=== PATIENT | female | born 1990 | race Caucasian/White ===

== ENCOUNTER 2017-11-27 07:53 | Day surgery (SDC) | payer OTHER ==
[2017-11-27] MEDS ORDERED: SOD CHLORIDE 0.9% 1,000 ML IV (08:00)
[2017-11-27] MEDS ORDERED: CEFAZOLIN 2 GM/50 ML (PMX) 50 ML IVPB (08:00)
[2017-11-27] MEDS ORDERED: GLYCOPYRROLATE 0.4 MG INJ (09:45)
[2017-11-27] MEDS ORDERED: PROPOFOL 20 ML (09:45)
[2017-11-27] MEDS ORDERED: ROCURONIUM 50 MG INJ (09:45)
[2017-11-27] MEDS ORDERED: NEOSTIGMINE 3 MG/3 ML SYRINGE (09:45)
[2017-11-27] MEDS ORDERED: MIDAZOLAM 1 MG/ML 2 ML INJ (09:45)
[2017-11-27] MEDS ORDERED: CEFAZOLIN 1 GM INJ (09:45)
[2017-11-27] MEDS ORDERED: FENTAnyl 50 MCG/ML VIAL (09:46)
[2017-11-27] MEDS ORDERED: ONDANSETRON 4 MG INJ (09:46)
[2017-11-27] MEDS ORDERED: DEXAMETHASONE 4 MG/ML 1 ML INJ (09:46)
[2017-11-27] MEDS: BUPIVACAINE 0.25% (MPF) 30 ML INJ (10:10)
[2017-11-27] MEDS: POLYMYXIN/BACITRACIN 1L IRRIG (10:11)
[2017-11-27] MEDS ORDERED: FENTAnyl 50 MCG/ML VIAL IV ×2 (10:30)
[2017-11-27] MEDS ORDERED: LABETALOL HCL 20MG INJ IV (10:30)
[2017-11-27] MEDS ORDERED: hydrALAzine 20 MG INJ IV (10:30)
[2017-11-27] MEDS ORDERED: TRIMETHOBENZAMIDE 100 MG/ML VIAL IM (10:30)
[2017-11-27] MEDS ORDERED: ALBUTEROL 0.083% (NEB) 2.5 MG/3 ML AMP HHN (10:30)
[2017-11-27] MEDS ORDERED: OXYCODONE/ACETAMINOPHEN (5/325) TAB PO ×2 (10:30)
[2017-11-27] MEDS ORDERED: DIPHENHYDRAMINE 50 MG INJ IV (10:30)
[2017-11-27] MEDS ORDERED: HYDROmorphONE (0.2 MG/ML) 10ML SYG IV ×3 (10:30)
[2017-11-27] MEDS ORDERED: MIDAZOLAM 1 MG/ML 2 ML INJ IV (10:30)
[2017-11-27] MEDS ORDERED: MEPERIDINE 25 MG INJ IV (10:30)
[2017-11-27] MEDS ORDERED: IPRATROPIUM (NEB) 0.5 MG/2.5 ML AMP HHN (10:30)
[2017-11-27] MEDS ORDERED: EPHEDrine SULFATE 50 MG/5 ML SYG IV (10:30)
[2017-11-27] MEDS ORDERED: SUGAMMADEX SODIUM 200 MG/2 ML VIAL IV (10:38)
[2017-11-27] MEDS: HYDROCODONE/APAP (5/325) TAB PO (11:00)
[2017-11-27] MEDS: ONDANSETRON 4 MG INJ IV (11:04)
[2017-11-27] MEDS: FENTAnyl 50 MCG/ML VIAL IV ×3 (11:04→11:56)
== END 2017-11-27 12:54 | disposition home or self-care (01) ==
LOC: SDS 07:53
DX: K43.6 Other and unspecified ventral hernia with obstruction, without gangrene (principal); E03.9 Hypothyroidism, unspecified; F20.9 Schizophrenia, unspecified
CPT/HCPCS: 49653; 84703; 88307

== ENCOUNTER 2019-03-02 09:31 | Inpatient (IN) | payer OTHER ==
[2019-03-02 10:01] LABS: ADD MAN DIFF? NO
[2019-03-02] MEDS: ALBUTEROL 0.083% (NEB) 2.5 MG/3 ML AMP INH (10:04)
[2019-03-02 10:05] LABS: BASOPHIL # 0.1 10^3/ul (0.0-0.1); BASOPHILS % 0.7 % (0.0-2.0); EOSINOPHILS % 0.2 % (0.0-7.0); HEMATOCRIT 47.7 % (37.0-47.0); HEMOGLOBIN 14.8 g/dl (12.0-16.0); LYMPHOCYTES # 1.1 10^3/ul (0.8-2.9); LYMPHOCYTES % 6.6 % (15.0-51.0); MEAN CORPUSCULAR HEMOGLOBIN 26.6 pg (29.0-33.0); MEAN CORPUSCULAR VOLUME 85.8 fl (82.0-101.0); MEAN PLATELET VOLUME 8.8 fl (7.4-10.4); MONOCYTE # 0.8 10^3/ul (0.3-0.9); MONOCYTES % 4.6 % (0.0-11.0); NEUTROPHIL # 14.7 10^3/ul (1.6-7.5); PLATELET COUNT 377 10^3/UL (140-415); RED BLOOD COUNT 5.56 10^6/ul (4.20-5.40); RED CELL DISTRIBUTION WIDTH 18.9 % (11.5-14.5)
[2019-03-02 10:05] LABS: WHITE BLOOD COUNT 16.9 10^3/ul (4.8-10.8)
[2019-03-02 10:16] LABS: ALANINE AMINOTRANSFERASE 32 IU/L (13-69); ALBUMIN/GLOBULIN RATIO 1.08; ALKALINE PHOSPHATASE 75 IU/L (42-121); ANION GAP 10 (5-13); ASPARTATE AMINO TRANSFERASE 36 IU/L (15-46); BILIRUBIN,INDIRECT 0.7 mg/dl (0-1.1); BILIRUBIN,TOTAL 0.7 mg/dl (0.2-1.3); BLOOD UREA NITROGEN 10 mg/dl (7-20); CALCIUM 9.4 mg/dl (8.4-10.2); CARBON DIOXIDE 30 mmol/L (21-31); CHLORIDE 96 mmol/L (97-110); CREATININE 0.76 mg/dl (0.44-1.00); Estimated GFR > 60 mL/min (>60); GLUCOSE 117 mg/dl (70-220); INR 1.02; POTASSIUM 4.1 mmol/L (3.5-5.1); PROTIME 13.5 Sec (11.9-14.9); PT RATIO 1.1; SODIUM 136 mmol/L (135-144); TOTAL PROTEIN 7.7 g/dl (6.1-8.1)
[2019-03-02 10:17] LABS: PARTIAL THROMBOPLASTIN TIME 27.3 Sec (23.0-35.0)
[2019-03-02 10:24] LABS: B-TYPE NATRIURETIC PEPTIDE 66 PG/ML (0-125)
[2019-03-02 10:29] LABS: TROPONIN-I < 0.012 ng/ml (0.000-0.120)
[2019-03-02] MEDS: CEFTRIAXONE 1 GM/50 ML (PMX) 50 ML IVPB (12:02)
[2019-03-02] MEDS ORDERED: ACETAMINOPHEN 325 MG TAB PO (12:30)
[2019-03-02] MEDS ORDERED: ONDANSETRON 4 MG INJ IV ×2 (12:30→15:30)
[2019-03-02] MEDS: FUROSEMIDE 40 MG INJ IV (12:36)
[2019-03-02 13:12] LABS: ADD UMIC YES; UR ASCORBIC ACID NEGATIVE (NEGATIVE); UR BILIRUBIN (Dip) NEGATIVE (NEGATIVE); UR BLOOD (Dip) 1+ mg/dL (NEGATIVE); UR CLARITY CLEAR (CLEAR); UR COLOR STRAW (YELLOW); UR GLUCOSE (Dip) NEGATIVE (NEGATIVE); UR KETONES (Dip) NEGATIVE (NEGATIVE); UR LEUKOCYTE ESTERASE (Dip) NEGATIVE Leu/ul (NEGATIVE); UR NITRITE (Dip) NEGATIVE (NEGATIVE); UR RBC 0 /HPF (0-5); UR SPECIFIC GRAVITY (Dip) 1.003 (1.003-1.030); UR TOTAL PROTEIN (Dip) NEGATIVE (NEGATIVE); UR UROBILINOGEN (Dip) NEGATIVE (NEGATIVE); UR WBC 1 /HPF (0-5)
[2019-03-02 15:11] LABS: AADO2 Arterial 420.6 mmHg (7.0-24.0); Allen Test ACCEPTAB; Arterial Base Excess 4.5 mmol/L (-3.0-3); Arterial Blood Gas Oxygen Sat 96.8 mmHG (95.0-98.0); Arterial COHb 0.8 % (0.0-3.0); Arterial Fraction of Oxyhgb 95.6 % (93.0-99.0); Arterial HCO3 31.3 mmol/L (22.0-26.0); Arterial MetHb 0.4 % (0.0-1.5); Arterial pCO2 53.8 mmhg (35-45); MODE HFNC; Site Right Radial
[2019-03-02] MEDS ORDERED: NACL 0.9% 3 ML SYG IV (15:30)
[2019-03-02] MEDS ORDERED: VANCOMYCIN IV PER PHARMACY XX (15:30)
[2019-03-02] MEDS: METHYLPREDNISOLONE 125 MG INJ IV (15:49)
[2019-03-02] MEDS: FAMOTIDINE 20 MG INJ IV (15:49)
[2019-03-02 15:51] LABS: LACTIC ACID 1.1 mmol/L (0.5-2.0)
[2019-03-02] MEDS: MIDAZOLAM (DRIP) 50 mg/50 mL 50 ML IV (16:14)
[2019-03-02 16:31] LABS: CREATINE KINASE 70 IU/L (23-200)
[2019-03-02 16:37] LABS: AADO2 Arterial 523.7 mmHg (7.0-24.0); Allen Test ACCEPTAB; Arterial Base Excess 6.2 mmol/L (-3.0-3); Arterial COHb 0.9 % (0.0-3.0); Arterial Fraction of Oxyhgb 97.7 % (93.0-99.0); Arterial HCO3 30.2 mmol/L (22.0-26.0); Arterial MetHb 0.4 % (0.0-1.5); Arterial pCO2 41.2 mmhg (35-45); MODE VENT - AC; Site Right Radial
[2019-03-02 16:44] LABS: CK INDEX 7.2; CK-MB 5.04 ng/ml (0.0-2.4); TROPONIN-I < 0.012 ng/ml (0.000-0.120)
[2019-03-02] MEDS: VANCOMYCIN HCL 2 GM in SOD CHLORIDE 0.9% 500 ML IVPB (17:00)
[2019-03-02 17:47] LABS: AMPHETAMINE/METHAMPHETAMINE Negative (NEGATIVE); BARBITURATES Negative (NEGATIVE); BENZODIAZEPINES Negative (NEGATIVE); CANNABINOIDS Negative (NEGATIVE); COCAINE Negative (NEGATIVE); OPIATES Negative (NEGATIVE)
[2019-03-02] MEDS ORDERED: LORAZEPAM 2 MG INJ (17:49)
[2019-03-02] MEDS: LORAZEPAM 2 MG INJ IV (17:53)
[2019-03-02] MEDS: ALBUTEROL/IPRATROPIUM (NEB) 3 ML AMP HHN ×2 (18:05→21:05)
[2019-03-02] MEDS: PROPOFOL 100 ML IV (18:13)
[2019-03-02] MEDS ORDERED: ALBUTEROL/IPRATROPIUM (NEB) 3 ML AMP (21:05)
[2019-03-02 22:12] LABS: LACTIC ACID 2.4 mmol/L (0.5-2.0)
[2019-03-02 22:16] LABS: CREATINE KINASE 49 IU/L (23-200)
[2019-03-02 22:28] LABS: CK INDEX 5.8; CK-MB 2.86 ng/ml (0.0-2.4); TROPONIN-I < 0.012 ng/ml (0.000-0.120)
[2019-03-03] MEDS: CEFEPIME 1GM/50 ML (PMX) 50 ML IVPB ×3 (00:08→21:10)
[2019-03-03] MEDS: FAMOTIDINE 20 MG INJ IV ×3 (00:08→21:10)
[2019-03-03] MEDS: DEXTROSE 5%-0.45% NACL 1,000 ML IV ×2 (00:08→15:16)
[2019-03-03] MEDS: METHYLPREDNISOLONE 125 MG INJ IV ×4 (00:08→21:10)
[2019-03-03] MEDS: ALBUTEROL/IPRATROPIUM (NEB) 3 ML AMP HHN ×6 (00:52→20:51)
[2019-03-03] MEDS: MIDAZOLAM (DRIP) 50 mg/50 mL 50 ML IV (04:59)
[2019-03-03 05:52] LABS: ADD MAN DIFF? NO
[2019-03-03 06:04] LABS: BASOPHILS % 0.2 % (0.0-2.0); HEMATOCRIT 46.3 % (37.0-47.0); HEMOGLOBIN 14.5 g/dl (12.0-16.0); LYMPHOCYTES # 0.8 10^3/ul (0.8-2.9); LYMPHOCYTES % 5.3 % (15.0-51.0); MEAN CORPUSCULAR HEMOGLOBIN 26.6 pg (29.0-33.0); MEAN CORPUSCULAR HGB CONC 31.3 g/dl (32.0-37.0); MEAN PLATELET VOLUME 9.1 fl (7.4-10.4); MONOCYTE # 0.3 10^3/ul (0.3-0.9); MONOCYTES % 1.8 % (0.0-11.0); NEUTROPHIL # 13.2 10^3/ul (1.6-7.5); NEUTROPHILS % 91.6 % (39.0-77.0); PLATELET COUNT 365 10^3/UL (140-415); RED BLOOD COUNT 5.45 10^6/ul (4.20-5.40); RED CELL DISTRIBUTION WIDTH 19.9 % (11.5-14.5)
[2019-03-03 06:04] LABS: WHITE BLOOD COUNT 14.4 10^3/ul (4.8-10.8)
[2019-03-03] MEDS: VANCOMYCIN HCL 1.25 GM in SOD CHLORIDE 0.9% 250 ML IVPB ×2 (06:27→18:36)
[2019-03-03 06:31] LABS: ALANINE AMINOTRANSFERASE 31 IU/L (13-69); ALBUMIN 3.9 g/dl (3.3-4.9); ALBUMIN/GLOBULIN RATIO 1.08; ALKALINE PHOSPHATASE 72 IU/L (42-121); ANION GAP 11 (5-13); ASPARTATE AMINO TRANSFERASE 42 IU/L (15-46); BILIRUBIN,INDIRECT 0.5 mg/dl (0-1.1); BILIRUBIN,TOTAL 0.5 mg/dl (0.2-1.3); BLOOD UREA NITROGEN 16 mg/dl (7-20); CALCIUM 9.1 mg/dl (8.4-10.2); CARBON DIOXIDE 29 mmol/L (21-31); CHLORIDE 99 mmol/L (97-110); CREATININE 0.89 mg/dl (0.44-1.00); Estimated GFR > 60 mL/min (>60); GLUCOSE 159 mg/dl (70-220); MAGNESIUM 2.2 mg/dl (1.7-2.5); PHOSPHORUS 3.6 mg/dl (2.5-4.9); POTASSIUM 3.8 mmol/L (3.5-5.1); SODIUM 139 mmol/L (135-144); TOTAL PROTEIN 7.5 g/dl (6.1-8.1)
[2019-03-03 06:58] LABS: THYROID STIMULATING HORMONE 0.798 MIU/L (0.465-4.680)
[2019-03-03 07:16] LABS: TROPONIN-I < 0.012 ng/ml (0.000-0.120)
[2019-03-03] MEDS: FUROSEMIDE 20 MG INJ IV (08:56)
[2019-03-03] MEDS: PROPOFOL 100 ML IV ×5 (08:57→21:18)
[2019-03-03] MEDS: ENOXAPARIN 40 MG/0.4 ML SYG SC (08:57)
[2019-03-03 09:39] LABS: AADO2 Arterial 558.1 mmHg (7.0-24.0); Allen Test ACCEPTAB; Arterial Base Excess 1.5 mmol/L (-3.0-3); Arterial Blood Gas Oxygen Sat 98.2 mmHG (95.0-98.0); Arterial COHb 0.5 % (0.0-3.0); Arterial Fraction of Oxyhgb 97.4 % (93.0-99.0); Arterial HCO3 25.7 mmol/L (22.0-26.0); Arterial MetHb 0.3 % (0.0-1.5); MODE VENT - AC; Site Right Radial
[2019-03-03] MEDS ORDERED: FENTAnyl (DRIP) 1000 mcg/100mL 100 ML IV (11:30)
[2019-03-03] MEDS: FENTAnyl (DRIP) 1000 mcg/100mL 100 ML IV ×2 (12:15→18:22)
[2019-03-04] MEDS: ALBUTEROL/IPRATROPIUM (NEB) 3 ML AMP HHN ×4 (00:50→14:17)
[2019-03-04 04:12] LABS: ADD MAN DIFF? NO
[2019-03-04 04:14] LABS: ABNORMAL IP MESSAGE 1; BASOPHILS % 0.2 % (0.0-2.0); HEMATOCRIT 42.4 % (37.0-47.0); HEMOGLOBIN 13.3 g/dl (12.0-16.0); LYMPHOCYTES # 0.5 10^3/ul (0.8-2.9); LYMPHOCYTES % 2.8 % (15.0-51.0); MEAN CORPUSCULAR HEMOGLOBIN 26.9 pg (29.0-33.0); MEAN CORPUSCULAR HGB CONC 31.4 g/dl (32.0-37.0); MEAN CORPUSCULAR VOLUME 85.8 fl (82.0-101.0); MEAN PLATELET VOLUME 8.6 fl (7.4-10.4); MONOCYTES % 5.3 % (0.0-11.0); NEUTROPHILS % 90.9 % (39.0-77.0); PLATELET COUNT 327 10^3/UL (140-415); RED BLOOD COUNT 4.94 10^6/ul (4.20-5.40); RED CELL DISTRIBUTION WIDTH 19.8 % (11.5-14.5)
[2019-03-04 04:14] LABS: WHITE BLOOD COUNT 18.7 10^3/ul (4.8-10.8)
[2019-03-04 04:25] LABS: POSITIVE DIFF @See below
[2019-03-04 04:31] LABS: ANION GAP 7 (5-13); BLOOD UREA NITROGEN 25 mg/dl (7-20); CALCIUM 8.5 mg/dl (8.4-10.2); CARBON DIOXIDE 30 mmol/L (21-31); CHLORIDE 102 mmol/L (97-110); CREATININE 1.06 mg/dl (0.44-1.00); Estimated GFR > 60 mL/min (>60); GLUCOSE 172 mg/dl (70-220); POTASSIUM 4.1 mmol/L (3.5-5.1); SODIUM 139 mmol/L (135-144)
[2019-03-04 04:33] LABS: LACTIC ACID 3.3 mmol/L (0.5-2.0)
[2019-03-04 04:35] LABS: VANCOMYCIN,TROUGH 12.9 ug/ml (10.0-20.0)
[2019-03-04 04:53] LABS: Allen Test ACCEPTAB; Arterial Base Excess 3.8 mmol/L (-3.0-3); Arterial Blood Gas Oxygen Sat 98.5 mmHG (95.0-98.0); Arterial COHb 0.6 % (0.0-3.0); Arterial Fraction of Oxyhgb 97.5 % (93.0-99.0); Arterial HCO3 29.2 mmol/L (22.0-26.0); Arterial MetHb 0.4 % (0.0-1.5); Arterial pCO2 46.3 mmhg (35-45); MODE VENT - AC; Site Left Radial
[2019-03-04] MEDS: METHYLPREDNISOLONE 125 MG INJ IV ×3 (05:13→21:44)
[2019-03-04] MEDS: VANCOMYCIN HCL 1.25 GM in SOD CHLORIDE 0.9% 250 ML IVPB ×2 (05:13→15:54)
[2019-03-04] MEDS: PROPOFOL 100 ML IV ×5 (06:07→21:55)
[2019-03-04] MEDS: CEFEPIME 1GM/50 ML (PMX) 50 ML IVPB ×2 (10:23→20:02)
[2019-03-04] MEDS: ENOXAPARIN 40 MG/0.4 ML SYG SC (10:25)
[2019-03-04] MEDS ORDERED: GLUCOSE GEL 15 GRAM TUBE PO ×2 (10:30)
[2019-03-04] MEDS ORDERED: DEXTROSE 50% 50 ML SYRINGE IV ×2 (10:30)
[2019-03-04] MEDS ORDERED: GLUCOSE GEL 15 GRAM TUBE BUCCAL (10:30)
[2019-03-04] MEDS ORDERED: GLUCAGON 1 MG INJ IM (10:30)
[2019-03-04] MEDS: FAMOTIDINE 20 MG INJ IV ×2 (10:31→20:02)
[2019-03-04] MEDS: FUROSEMIDE 40 MG INJ IV (10:32)
[2019-03-04] MEDS: FENTAnyl (DRIP) 1000 mcg/100mL 100 ML IV ×2 (10:39→22:34)
[2019-03-04] MEDS: INSULIN ASPART [NOVOLOG] 3 ML PEN SC ×3 (12:49→20:06)
[2019-03-04] MEDS: ACETAMINOPHEN 325 MG TAB PO (17:42)
[2019-03-04] MEDS ORDERED: ALBUTEROL HFA 8 GM INHALER (19:12)
[2019-03-04] MEDS: IPRATROPIUM (HFA) 12.9 GM INHALER INH (21:12)
[2019-03-04] MEDS: ALBUTEROL HFA 8 GM INHALER INH (21:12)
[2019-03-05] MEDS: IPRATROPIUM (HFA) 12.9 GM INHALER INH ×6 (00:51→19:59)
[2019-03-05] MEDS: ALBUTEROL HFA 8 GM INHALER INH ×6 (00:51→19:59)
[2019-03-05] MEDS: ACCU-CHEK XX (01:35)
[2019-03-05] MEDS ORDERED: ACCU-CHEK XX (02:00)
[2019-03-05] MEDS: PROPOFOL 100 ML IV ×2 (03:22→09:17)
[2019-03-05] MEDS: VANCOMYCIN HCL 1.25 GM in SOD CHLORIDE 0.9% 250 ML IVPB ×2 (05:25→17:49)
[2019-03-05] MEDS: METHYLPREDNISOLONE 125 MG INJ IV (05:25)
[2019-03-05] MEDS: INSULIN ASPART [NOVOLOG] 3 ML PEN SC ×5 (05:33→21:11)
[2019-03-05] MEDS: LEVOTHYROXINE 88 MCG TAB PO (06:05)
[2019-03-05 06:20] LABS: ADD MAN DIFF? NO
[2019-03-05 06:23] LABS: ABNORMAL IP MESSAGE 1; BASOPHILS % 0.1 % (0.0-2.0); EOSINOPHILS % 0.1 % (0.0-7.0); HEMATOCRIT 41.7 % (37.0-47.0); HEMOGLOBIN 13.2 g/dl (12.0-16.0); LYMPHOCYTES # 0.5 10^3/ul (0.8-2.9); LYMPHOCYTES % 3.6 % (15.0-51.0); MEAN CORPUSCULAR HEMOGLOBIN 27.6 pg (29.0-33.0); MEAN CORPUSCULAR HGB CONC 31.7 g/dl (32.0-37.0); MEAN CORPUSCULAR VOLUME 87.1 fl (82.0-101.0); MONOCYTE # 0.9 10^3/ul (0.3-0.9); MONOCYTES % 6.4 % (0.0-11.0); NEUTROPHILS % 88.9 % (39.0-77.0); NUCLEATED RED BLOOD CELLS% 0.2 /100WBC (0.0-0.0); RED BLOOD COUNT 4.79 10^6/ul (4.20-5.40); RED CELL DISTRIBUTION WIDTH 20.1 % (11.5-14.5)
[2019-03-05 06:23] LABS: WHITE BLOOD COUNT 14.6 10^3/ul (4.8-10.8)
[2019-03-05 06:35] LABS: MEAN PLATELET VOLUME 11.3 fl (7.4-10.4); PLATELET COUNT 260 10^3/UL (140-415)
[2019-03-05 06:36] LABS: POSITIVE DIFF @See below
[2019-03-05 08:10] LABS: ALANINE AMINOTRANSFERASE 45 IU/L (13-69); ALBUMIN 3.2 g/dl (3.3-4.9); ALBUMIN/GLOBULIN RATIO 1.03; ALKALINE PHOSPHATASE 50 IU/L (42-121); ANION GAP 7 (5-13); ASPARTATE AMINO TRANSFERASE 33 IU/L (15-46); BILIRUBIN,INDIRECT 0.3 mg/dl (0-1.1); BILIRUBIN,TOTAL 0.3 mg/dl (0.2-1.3); BLOOD UREA NITROGEN 21 mg/dl (7-20); CALCIUM 8.2 mg/dl (8.4-10.2); CARBON DIOXIDE 28 mmol/L (21-31); CHLORIDE 106 mmol/L (97-110); CREATININE 0.79 mg/dl (0.44-1.00); Estimated GFR > 60 mL/min (>60); GLUCOSE 146 mg/dl (70-220); POTASSIUM 4.6 mmol/L (3.5-5.1); SODIUM 141 mmol/L (135-144); TOTAL PROTEIN 6.3 g/dl (6.1-8.1)
[2019-03-05 08:49] LABS: AADO2 Arterial 351.9 mmHg (7.0-24.0); Allen Test ACCEPTAB; Arterial Base Excess 6.9 mmol/L (-3.0-3); Arterial Blood Gas Oxygen Sat 96.7 mmHG (95.0-98.0); Arterial COHb 0.5 % (0.0-3.0); Arterial HCO3 32.6 mmol/L (22.0-26.0); Arterial MetHb 0.2 % (0.0-1.5); Arterial pCO2 50.6 mmhg (35-45); MODE VENT - AC; Site Right Radial
[2019-03-05 08:56] LABS: MAGNESIUM 2.9 mg/dl (1.7-2.5)
[2019-03-05 08:56] LABS: PHOSPHORUS 3.2 mg/dl (2.5-4.9)
[2019-03-05] MEDS: FUROSEMIDE 40 MG INJ IV (09:18)
[2019-03-05] MEDS: CEFEPIME 1GM/50 ML (PMX) 50 ML IVPB ×2 (09:18→21:09)
[2019-03-05] MEDS: ENOXAPARIN 40 MG/0.4 ML SYG SC (09:18)
[2019-03-05] MEDS: FAMOTIDINE 20 MG INJ IV ×2 (10:00→21:09)
[2019-03-05] MEDS: BISACODYL 10 MG SUPP PR (12:15)
[2019-03-05] MEDS: DOCUSATE SODIUM 10 MG/ML (10ML CUP) NGT ×2 (12:15→21:09)
[2019-03-05] MEDS: MIDAZOLAM (DRIP) 50 mg/50 mL 50 ML IV ×2 (12:17→21:13)
[2019-03-05] MEDS: FENTAnyl (DRIP) 1000 mcg/100mL 100 ML IV ×2 (12:18→21:14)
[2019-03-05] MEDS: METHYLPREDNISOLONE 40 MG INJ IV ×2 (15:11→21:09)
[2019-03-05] MEDS: ACETAMINOPHEN 325 MG TAB PO (18:46)
[2019-03-06] MEDS: INSULIN ASPART [NOVOLOG] 3 ML PEN SC ×6 (00:43→21:00)
[2019-03-06] MEDS: IPRATROPIUM (HFA) 12.9 GM INHALER INH ×6 (01:43→21:05)
[2019-03-06] MEDS: ALBUTEROL HFA 8 GM INHALER INH ×6 (01:44→21:05)
[2019-03-06] MEDS: ACETAMINOPHEN 325 MG TAB PO ×2 (02:34→11:11)
[2019-03-06] MEDS: VANCOMYCIN HCL 1.25 GM in SOD CHLORIDE 0.9% 250 ML IVPB ×2 (04:57→17:20)
[2019-03-06 05:01] LABS: ADD MAN DIFF? NO
[2019-03-06 05:14] LABS: WHITE BLOOD COUNT 10.5 10^3/ul (4.8-10.8)
[2019-03-06 05:14] LABS: BASOPHILS % 0.3 % (0.0-2.0); HEMATOCRIT 42.5 % (37.0-47.0); LYMPHOCYTES # 0.6 10^3/ul (0.8-2.9); LYMPHOCYTES % 5.8 % (15.0-51.0); MEAN CORPUSCULAR HGB CONC 30.6 g/dl (32.0-37.0); MEAN CORPUSCULAR VOLUME 88.2 fl (82.0-101.0); MEAN PLATELET VOLUME 9.8 fl (7.4-10.4); MONOCYTE # 1.3 10^3/ul (0.3-0.9); MONOCYTES % 12.2 % (0.0-11.0); NEUTROPHIL # 8.4 10^3/ul (1.6-7.5); NEUTROPHILS % 80.6 % (39.0-77.0); PLATELET COUNT 265 10^3/UL (140-415); RED BLOOD COUNT 4.82 10^6/ul (4.20-5.40); RED CELL DISTRIBUTION WIDTH 19.6 % (11.5-14.5)
[2019-03-06 05:53] LABS: ANION GAP 5 (5-13); BLOOD UREA NITROGEN 25 mg/dl (7-20); CALCIUM 8.1 mg/dl (8.4-10.2); CARBON DIOXIDE 32 mmol/L (21-31); CHLORIDE 104 mmol/L (97-110); CREATININE 0.82 mg/dl (0.44-1.00); Estimated GFR > 60 mL/min (>60); GLUCOSE 157 mg/dl (70-220); SODIUM 141 mmol/L (135-144)
[2019-03-06] MEDS: METHYLPREDNISOLONE 40 MG INJ IV ×3 (06:20→21:33)
[2019-03-06] MEDS: LEVOTHYROXINE 88 MCG TAB PO (06:20)
[2019-03-06] MEDS: ENOXAPARIN 40 MG/0.4 ML SYG SC (08:41)
[2019-03-06] MEDS: FAMOTIDINE 20 MG INJ IV ×2 (08:41→21:32)
[2019-03-06] MEDS: DOCUSATE SODIUM 10 MG/ML (10ML CUP) NGT ×2 (08:42→21:32)
[2019-03-06] MEDS: FUROSEMIDE 40 MG INJ IV (08:42)
[2019-03-06] MEDS: CEFEPIME 1GM/50 ML (PMX) 50 ML IVPB (08:47)
[2019-03-06] MEDS: MIDAZOLAM (DRIP) 50 mg/50 mL 50 ML IV ×2 (08:52→19:50)
[2019-03-06] MEDS: FENTAnyl (DRIP) 1000 mcg/100mL 100 ML IV ×2 (08:54→19:52)
[2019-03-06] MEDS: PROPOFOL 100 ML IV (12:30)
[2019-03-06] MEDS: LEVOFLOXACIN 750MG/D5W (PMX) 150 ML IVPB (15:49)
[2019-03-06] MEDS: NA PHOSPHATE/BIPHOS 133 ML ENEMA PR (15:50)
[2019-03-06 16:29] LABS: ADD UMIC YES; UR ASCORBIC ACID NEGATIVE (NEGATIVE); UR BILIRUBIN (Dip) NEGATIVE (NEGATIVE); UR BLOOD (Dip) 2+ mg/dL (NEGATIVE); UR CLARITY SLIGHTLY CLOUDY (CLEAR); UR COLOR YELLOW (YELLOW); UR GLUCOSE (Dip) NEGATIVE (NEGATIVE); UR KETONES (Dip) NEGATIVE (NEGATIVE); UR LEUKOCYTE ESTERASE (Dip) NEGATIVE Leu/ul (NEGATIVE); UR NITRITE (Dip) NEGATIVE (NEGATIVE); UR RBC 3 /HPF (0-5); UR SPECIFIC GRAVITY (Dip) 1.026 (1.003-1.030); UR TOTAL PROTEIN (Dip) 1+ mg/dl (NEGATIVE); UR UROBILINOGEN (Dip) NEGATIVE (NEGATIVE); UR WBC 1 /HPF (0-5)
[2019-03-06] MEDS: LIDOCAINE 1% (MPF) 5 ML VIAL SC (17:06)
[2019-03-06] MEDS: CEFEPIME 2GM/50 ML (PMX) 50 ML IVPB (21:32)
[2019-03-07] MEDS: IPRATROPIUM (HFA) 12.9 GM INHALER INH ×6 (00:56→21:04)
[2019-03-07] MEDS: ALBUTEROL HFA 8 GM INHALER INH ×6 (00:56→21:04)
[2019-03-07] MEDS: INSULIN ASPART [NOVOLOG] 3 ML PEN SC ×6 (01:00→21:38)
[2019-03-07 05:15] LABS: ADD MAN DIFF? NO
[2019-03-07] MEDS: VANCOMYCIN HCL 1.25 GM in SOD CHLORIDE 0.9% 250 ML IVPB ×2 (05:16→17:29)
[2019-03-07] MEDS: METHYLPREDNISOLONE 40 MG INJ IV ×3 (05:16→21:44)
[2019-03-07 05:34] LABS: WHITE BLOOD COUNT 12.3 10^3/ul (4.8-10.8)
[2019-03-07 05:34] LABS: ABNORMAL IP MESSAGE 1; BASOPHILS % 0.2 % (0.0-2.0); HEMATOCRIT 44.2 % (37.0-47.0); HEMOGLOBIN 13.6 g/dl (12.0-16.0); LYMPHOCYTES # 0.4 10^3/ul (0.8-2.9); LYMPHOCYTES % 2.9 % (15.0-51.0); MEAN CORPUSCULAR HGB CONC 30.8 g/dl (32.0-37.0); MEAN CORPUSCULAR VOLUME 87.7 fl (82.0-101.0); MEAN PLATELET VOLUME 9.5 fl (7.4-10.4); MONOCYTES % 8.5 % (0.0-11.0); NEUTROPHIL # 10.7 10^3/ul (1.6-7.5); NEUTROPHILS % 87.3 % (39.0-77.0); PLATELET COUNT 243 10^3/UL (140-415); RED BLOOD COUNT 5.04 10^6/ul (4.20-5.40); RED CELL DISTRIBUTION WIDTH 19.3 % (11.5-14.5)
[2019-03-07 05:37] LABS: POSITIVE DIFF @See below
[2019-03-07 05:40] LABS: ANION GAP 6 (5-13); BLOOD UREA NITROGEN 25 mg/dl (7-20); CALCIUM 8.4 mg/dl (8.4-10.2); CARBON DIOXIDE 33 mmol/L (21-31); CHLORIDE 104 mmol/L (97-110); CREATININE 0.66 mg/dl (0.44-1.00); Estimated GFR > 60 mL/min (>60); GLUCOSE 143 mg/dl (70-220); MAGNESIUM 2.5 mg/dl (1.7-2.5); PHOSPHORUS 3.2 mg/dl (2.5-4.9); SODIUM 143 mmol/L (135-144)
[2019-03-07] MEDS: LEVOTHYROXINE 88 MCG TAB PO (07:01)
[2019-03-07] MEDS: CEFEPIME 2GM/50 ML (PMX) 50 ML IVPB ×2 (08:17→21:44)
[2019-03-07] MEDS: DOCUSATE SODIUM 10 MG/ML (10ML CUP) NGT ×2 (08:17→21:44)
[2019-03-07] MEDS: FAMOTIDINE 20 MG INJ IV ×2 (08:17→21:44)
[2019-03-07] MEDS: FUROSEMIDE 40 MG INJ IV ×2 (08:18→14:34)
[2019-03-07] MEDS: ENOXAPARIN 40 MG/0.4 ML SYG SC (08:23)
[2019-03-07] MEDS: PROPOFOL 100 ML IV ×2 (08:24→12:01)
[2019-03-07] MEDS: ACETAMINOPHEN 325 MG TAB PO (12:56)
[2019-03-07] MEDS: LEVOFLOXACIN 750MG/D5W (PMX) 150 ML IVPB (14:34)
[2019-03-07] MEDS: FENTAnyl (DRIP) 1000 mcg/100mL 100 ML IV (16:28)
[2019-03-07] MEDS: BISACODYL 10 MG SUPP PR (17:29)
[2019-03-07] MEDS: MIDAZOLAM (DRIP) 50 mg/50 mL 50 ML IV (23:03)
[2019-03-08] MEDS: PROPOFOL 100 ML IV ×3 (00:30→21:57)
[2019-03-08] MEDS: IPRATROPIUM (HFA) 12.9 GM INHALER INH ×6 (01:14→20:51)
[2019-03-08] MEDS: ALBUTEROL HFA 8 GM INHALER INH ×6 (01:14→20:50)
[2019-03-08] MEDS: INSULIN ASPART [NOVOLOG] 3 ML PEN SC ×6 (02:10→21:00)
[2019-03-08 04:00] LABS: ADD MAN DIFF? NO
[2019-03-08 04:03] LABS: ABNORMAL IP MESSAGE 1; BASOPHILS % 0.3 % (0.0-2.0); HEMOGLOBIN 14.6 g/dl (12.0-16.0); LYMPHOCYTES # 0.5 10^3/ul (0.8-2.9); LYMPHOCYTES % 5.4 % (15.0-51.0); MEAN CORPUSCULAR HGB CONC 31.1 g/dl (32.0-37.0); MEAN PLATELET VOLUME 9.4 fl (7.4-10.4); MONOCYTES % 10.7 % (0.0-11.0); NEUTROPHIL # 7.4 10^3/ul (1.6-7.5); NEUTROPHILS % 82.5 % (39.0-77.0); PLATELET COUNT 234 10^3/UL (140-415); RED CELL DISTRIBUTION WIDTH 19.1 % (11.5-14.5)
[2019-03-08 04:03] LABS: WHITE BLOOD COUNT 8.9 10^3/ul (4.8-10.8)
[2019-03-08 04:04] LABS: POSITIVE DIFF @See below
[2019-03-08 04:20] LABS: ANION GAP 6 (5-13); BLOOD UREA NITROGEN 31 mg/dl (7-20); CARBON DIOXIDE 36 mmol/L (21-31); CHLORIDE 101 mmol/L (97-110); CREATININE 0.85 mg/dl (0.44-1.00); Estimated GFR > 60 mL/min (>60); GLUCOSE 138 mg/dl (70-220); MAGNESIUM 2.5 mg/dl (1.7-2.5); POTASSIUM 4.4 mmol/L (3.5-5.1); SODIUM 143 mmol/L (135-144)
[2019-03-08 04:40] LABS: VANCOMYCIN,TROUGH 9.2 ug/ml (10.0-20.0)
[2019-03-08] MEDS: VANCOMYCIN HCL 1.25 GM in SOD CHLORIDE 0.9% 250 ML IVPB (05:33)
[2019-03-08] MEDS: METHYLPREDNISOLONE 40 MG INJ IV ×2 (05:34→21:57)
[2019-03-08] MEDS: FENTAnyl (DRIP) 1000 mcg/100mL 100 ML IV ×2 (05:42→19:45)
[2019-03-08] MEDS: LEVOTHYROXINE 88 MCG TAB PO (08:15)
[2019-03-08] MEDS: FAMOTIDINE 20 MG INJ IV (08:16)
[2019-03-08] MEDS: DOCUSATE SODIUM 10 MG/ML (10ML CUP) NGT ×2 (08:16→21:57)
[2019-03-08] MEDS: FUROSEMIDE 40 MG INJ IV (08:16)
[2019-03-08] MEDS: CEFEPIME 2GM/50 ML (PMX) 50 ML IVPB ×2 (08:16→21:57)
[2019-03-08] MEDS: ENOXAPARIN 40 MG/0.4 ML SYG SC (08:17)
[2019-03-08] MEDS: MIDAZOLAM (DRIP) 50 mg/50 mL 50 ML IV ×2 (11:01→19:45)
[2019-03-08 11:37] LABS: AADO2 Arterial 201.3 mmHg (7.0-24.0); Allen Test ACCEPTAB; Arterial Base Excess 8.1 mmol/L (-3.0-3); Arterial Blood Gas Oxygen Sat 93.9 mmHG (95.0-98.0); Arterial COHb 0.7 % (0.0-3.0); Arterial HCO3 32.8 mmol/L (22.0-26.0); Arterial MetHb 0.3 % (0.0-1.5); MODE VENT - AC; Site Left Radial
[2019-03-08] MEDS: LEVOFLOXACIN 750MG/D5W (PMX) 150 ML IVPB (15:36)
[2019-03-08] MEDS: VANCOMYCIN HCL 1.5 GM in SOD CHLORIDE 0.9% 250 ML IVPB (17:00)
[2019-03-08] MEDS: FAMOTIDINE 20 MG TAB NGT (21:57)
[2019-03-09] MEDS: INSULIN ASPART [NOVOLOG] 3 ML PEN SC ×6 (00:49→20:38)
[2019-03-09] MEDS: IPRATROPIUM (HFA) 12.9 GM INHALER INH ×6 (01:15→21:09)
[2019-03-09] MEDS: ALBUTEROL HFA 8 GM INHALER INH ×6 (01:15→21:10)
[2019-03-09] MEDS: MIDAZOLAM (DRIP) 50 mg/50 mL 50 ML IV ×3 (04:21→21:22)
[2019-03-09] MEDS: VANCOMYCIN HCL 1.5 GM in SOD CHLORIDE 0.9% 250 ML IVPB ×2 (04:48→17:07)
[2019-03-09 04:58] LABS: ADD MAN DIFF? NO
[2019-03-09 05:09] LABS: ABNORMAL IP MESSAGE 1; BASOPHILS % 0.3 % (0.0-2.0); HEMATOCRIT 46.4 % (37.0-47.0); HEMOGLOBIN 14.4 g/dl (12.0-16.0); LYMPHOCYTES # 0.3 10^3/ul (0.8-2.9); LYMPHOCYTES % 2.4 % (15.0-51.0); MEAN CORPUSCULAR VOLUME 86.9 fl (82.0-101.0); MEAN PLATELET VOLUME 9.4 fl (7.4-10.4); MONOCYTES % 8.1 % (0.0-11.0); NEUTROPHIL # 11.3 10^3/ul (1.6-7.5); NEUTROPHILS % 88.1 % (39.0-77.0); PLATELET COUNT 204 10^3/UL (140-415); RED BLOOD COUNT 5.34 10^6/ul (4.20-5.40); RED CELL DISTRIBUTION WIDTH 19.3 % (11.5-14.5)
[2019-03-09 05:09] LABS: WHITE BLOOD COUNT 12.8 10^3/ul (4.8-10.8)
[2019-03-09 05:11] LABS: POSITIVE DIFF @See below
[2019-03-09 05:15] LABS: AADO2 Arterial 202.8 mmHg (7.0-24.0); Arterial Base Excess 6.9 mmol/L (-3.0-3); Arterial Blood Gas Oxygen Sat 91.7 mmHG (95.0-98.0); Arterial COHb 0.8 % (0.0-3.0); Arterial Fraction of Oxyhgb 90.7 % (93.0-99.0); Arterial HCO3 32.3 mmol/L (22.0-26.0); Arterial MetHb 0.3 % (0.0-1.5); Arterial pCO2 47.8 mmhg (35-45); MODE VENT - AC; Site Right Brachial
[2019-03-09 05:30] LABS: PHOSPHORUS 3.9 mg/dl (2.5-4.9)
[2019-03-09 05:30] LABS: MAGNESIUM 2.4 mg/dl (1.7-2.5)
[2019-03-09 05:37] LABS: ALANINE AMINOTRANSFERASE 43 IU/L (13-69); ALBUMIN 3.6 g/dl (3.3-4.9); ALBUMIN/GLOBULIN RATIO 1.12; ALKALINE PHOSPHATASE 42 IU/L (42-121); ANION GAP 7 (5-13); ASPARTATE AMINO TRANSFERASE 41 IU/L (15-46); BILIRUBIN,INDIRECT 0.5 mg/dl (0-1.1); BILIRUBIN,TOTAL 0.5 mg/dl (0.2-1.3); BLOOD UREA NITROGEN 34 mg/dl (7-20); CALCIUM 8.9 mg/dl (8.4-10.2); CARBON DIOXIDE 33 mmol/L (21-31); CHLORIDE 102 mmol/L (97-110); CREATININE 0.91 mg/dl (0.44-1.00); Estimated GFR > 60 mL/min (>60); GLUCOSE 162 mg/dl (70-220); POTASSIUM 4.3 mmol/L (3.5-5.1); SODIUM 142 mmol/L (135-144); TOTAL PROTEIN 6.8 g/dl (6.1-8.1)
[2019-03-09] MEDS: LEVOTHYROXINE 88 MCG TAB PO (06:40)
[2019-03-09] MEDS: FENTAnyl (DRIP) 1000 mcg/100mL 100 ML IV (06:46)
[2019-03-09] MEDS: FAMOTIDINE 20 MG TAB NGT ×2 (08:23→20:38)
[2019-03-09] MEDS: METHYLPREDNISOLONE 40 MG INJ IV ×2 (08:23→20:38)
[2019-03-09] MEDS: FUROSEMIDE 20 MG INJ IV (08:23)
[2019-03-09] MEDS: ACETAMINOPHEN 325 MG TAB PO ×2 (08:24→23:33)
[2019-03-09] MEDS: ENOXAPARIN 40 MG/0.4 ML SYG SC (08:25)
[2019-03-09] MEDS: CEFEPIME 2GM/50 ML (PMX) 50 ML IVPB (08:32)
[2019-03-09] MEDS: DOCUSATE SODIUM 10 MG/ML (10ML CUP) NGT ×2 (08:35→20:38)
[2019-03-09] MEDS: PROPOFOL 100 ML IV ×3 (11:39→21:22)
[2019-03-09] MEDS: FLUCONAZOLE 100 MG TAB PO (12:30)
[2019-03-09] MEDS: LEVOFLOXACIN 750MG/D5W (PMX) 150 ML IVPB (15:20)
[2019-03-09] MEDS: PIPER-TAZO 3.375 GM IV (PMX) 100 ML IVPB ×2 (17:10→23:32)
[2019-03-10] MEDS: INSULIN ASPART [NOVOLOG] 3 ML PEN SC ×6 (00:49→21:00)
[2019-03-10] MEDS: IPRATROPIUM (HFA) 12.9 GM INHALER INH ×5 (01:21→20:08)
[2019-03-10] MEDS: ALBUTEROL HFA 8 GM INHALER INH ×5 (01:21→20:05)
[2019-03-10 04:23] LABS: ADD MAN DIFF? NO
[2019-03-10 04:30] LABS: WHITE BLOOD COUNT 13.6 10^3/ul (4.8-10.8)
[2019-03-10 04:30] LABS: ABNORMAL IP MESSAGE 1; BASOPHILS % 0.3 % (0.0-2.0); HEMATOCRIT 44.4 % (37.0-47.0); HEMOGLOBIN 13.6 g/dl (12.0-16.0); LYMPHOCYTES # 0.4 10^3/ul (0.8-2.9); LYMPHOCYTES % 3.1 % (15.0-51.0); MEAN CORPUSCULAR HEMOGLOBIN 26.7 pg (29.0-33.0); MEAN CORPUSCULAR HGB CONC 30.6 g/dl (32.0-37.0); MEAN CORPUSCULAR VOLUME 87.2 fl (82.0-101.0); MEAN PLATELET VOLUME 9.7 fl (7.4-10.4); MONOCYTE # 1.1 10^3/ul (0.3-0.9); MONOCYTES % 8.3 % (0.0-11.0); NEUTROPHIL # 11.9 10^3/ul (1.6-7.5); NEUTROPHILS % 87.1 % (39.0-77.0); PLATELET COUNT 189 10^3/UL (140-415); RED BLOOD COUNT 5.09 10^6/ul (4.20-5.40); RED CELL DISTRIBUTION WIDTH 19.3 % (11.5-14.5)
[2019-03-10 04:47] LABS: MAGNESIUM 2.5 mg/dl (1.7-2.5)
[2019-03-10 04:47] LABS: PHOSPHORUS 4.1 mg/dl (2.5-4.9)
[2019-03-10 04:49] LABS: ALANINE AMINOTRANSFERASE 35 IU/L (13-69); ALBUMIN 3.3 g/dl (3.3-4.9); ALKALINE PHOSPHATASE 38 IU/L (42-121); ANION GAP 9 (5-13); ASPARTATE AMINO TRANSFERASE 26 IU/L (15-46); BILIRUBIN,INDIRECT 0.4 mg/dl (0-1.1); BILIRUBIN,TOTAL 0.4 mg/dl (0.2-1.3); BLOOD UREA NITROGEN 29 mg/dl (7-20); CALCIUM 8.6 mg/dl (8.4-10.2); CARBON DIOXIDE 30 mmol/L (21-31); CHLORIDE 104 mmol/L (97-110); CREATININE 0.79 mg/dl (0.44-1.00); Estimated GFR > 60 mL/min (>60); GLUCOSE 167 mg/dl (70-220); POTASSIUM 4.4 mmol/L (3.5-5.1); SODIUM 143 mmol/L (135-144); TOTAL PROTEIN 6.6 g/dl (6.1-8.1)
[2019-03-10 04:57] LABS: VANCOMYCIN,TROUGH 9.9 ug/ml (10.0-20.0)
[2019-03-10 05:06] LABS: POSITIVE DIFF @See below
[2019-03-10] MEDS: PIPER-TAZO 3.375 GM IV (PMX) 100 ML IVPB ×4 (06:05→23:19)
[2019-03-10] MEDS: LEVOTHYROXINE 88 MCG TAB PO (06:05)
[2019-03-10] MEDS: VANCOMYCIN HCL 1.5 GM in SOD CHLORIDE 0.9% 250 ML IVPB (06:22)
[2019-03-10] MEDS: PROPOFOL 100 ML IV ×2 (08:16→18:47)
[2019-03-10] MEDS: FLUCONAZOLE 100 MG TAB PO (09:51)
[2019-03-10] MEDS: DOCUSATE SODIUM 10 MG/ML (10ML CUP) NGT ×2 (09:51→21:16)
[2019-03-10] MEDS: FAMOTIDINE 20 MG TAB NGT ×2 (09:51→21:16)
[2019-03-10] MEDS: METHYLPREDNISOLONE 40 MG INJ IV ×2 (09:51→21:16)
[2019-03-10] MEDS: FUROSEMIDE 20 MG INJ IV (09:51)
[2019-03-10] MEDS: ENOXAPARIN 40 MG/0.4 ML SYG SC (09:52)
[2019-03-10] MEDS: MIDAZOLAM (DRIP) 50 mg/50 mL 50 ML IV ×2 (10:52→18:28)
[2019-03-10] MEDS: FENTAnyl (DRIP) 1000 mcg/100mL 100 ML IV (14:47)
[2019-03-10] MEDS: LEVOFLOXACIN 750MG/D5W (PMX) 150 ML IVPB (15:44)
[2019-03-10] MEDS: VANCOMYCIN HCL 1.75 GM in SOD CHLORIDE 0.9% 500 ML IVPB (17:54)
[2019-03-10] MEDS ORDERED: IPRATROPIUM (HFA) 12.9 GM INHALER INH (18:00)
[2019-03-10] MEDS ORDERED: ALBUTEROL HFA 8 GM INHALER INH (18:00)
[2019-03-10] MEDS: ACETAMINOPHEN 325 MG TAB PO (23:14)
[2019-03-11] MEDS: IPRATROPIUM (HFA) 12.9 GM INHALER INH ×4 (01:26→20:36)
[2019-03-11] MEDS: ALBUTEROL HFA 8 GM INHALER INH ×4 (01:26→20:36)
[2019-03-11] MEDS: INSULIN ASPART [NOVOLOG] 3 ML PEN SC ×6 (01:33→20:51)
[2019-03-11] MEDS: PROPOFOL 100 ML IV ×3 (02:41→22:24)
[2019-03-11] MEDS: MIDAZOLAM (DRIP) 50 mg/50 mL 50 ML IV ×2 (02:42→16:39)
[2019-03-11 04:40] LABS: ADD MAN DIFF? NO
[2019-03-11 04:46] LABS: WHITE BLOOD COUNT 13.3 10^3/ul (4.8-10.8)
[2019-03-11 04:46] LABS: ABNORMAL IP MESSAGE 1; BASOPHIL # 0.1 10^3/ul (0.0-0.1); BASOPHILS % 0.6 % (0.0-2.0); HEMOGLOBIN 13.2 g/dl (12.0-16.0); LYMPHOCYTES # 0.4 10^3/ul (0.8-2.9); LYMPHOCYTES % 2.9 % (15.0-51.0); MEAN CORPUSCULAR HEMOGLOBIN 27.3 pg (29.0-33.0); MEAN CORPUSCULAR HGB CONC 30.7 g/dl (32.0-37.0); MEAN CORPUSCULAR VOLUME 88.8 fl (82.0-101.0); MONOCYTES % 7.4 % (0.0-11.0); NEUTROPHIL # 11.7 10^3/ul (1.6-7.5); PLATELET COUNT 190 10^3/UL (140-415); RED BLOOD COUNT 4.84 10^6/ul (4.20-5.40); RED CELL DISTRIBUTION WIDTH 19.1 % (11.5-14.5)
[2019-03-11 04:56] LABS: POSITIVE DIFF @See below
[2019-03-11 05:12] LABS: ALANINE AMINOTRANSFERASE 34 IU/L (13-69); ALBUMIN 3.3 g/dl (3.3-4.9); ALKALINE PHOSPHATASE 38 IU/L (42-121); ANION GAP 9 (5-13); ASPARTATE AMINO TRANSFERASE 21 IU/L (15-46); BILIRUBIN,INDIRECT 0.4 mg/dl (0-1.1); BILIRUBIN,TOTAL 0.4 mg/dl (0.2-1.3); BLOOD UREA NITROGEN 26 mg/dl (7-20); CALCIUM 8.5 mg/dl (8.4-10.2); CARBON DIOXIDE 29 mmol/L (21-31); CHLORIDE 102 mmol/L (97-110); CREATININE 0.74 mg/dl (0.44-1.00); Estimated GFR > 60 mL/min (>60); GLUCOSE 164 mg/dl (70-220); SODIUM 140 mmol/L (135-144); TOTAL PROTEIN 6.3 g/dl (6.1-8.1)
[2019-03-11 05:16] LABS: PHOSPHORUS 3.3 mg/dl (2.5-4.9)
[2019-03-11 05:16] LABS: MAGNESIUM 2.4 mg/dl (1.7-2.5)
[2019-03-11] MEDS: PIPER-TAZO 3.375 GM IV (PMX) 100 ML IVPB ×3 (05:19→18:01)
[2019-03-11] MEDS: LEVOTHYROXINE 88 MCG TAB PO (05:19)
[2019-03-11] MEDS: VANCOMYCIN HCL 1.75 GM in SOD CHLORIDE 0.9% 500 ML IVPB ×2 (05:19→18:01)
[2019-03-11] MEDS: DOCUSATE SODIUM 10 MG/ML (10ML CUP) NGT ×2 (09:14→20:43)
[2019-03-11] MEDS: METHYLPREDNISOLONE 40 MG INJ IV ×2 (09:15→20:44)
[2019-03-11] MEDS: FAMOTIDINE 20 MG TAB NGT ×2 (09:15→20:43)
[2019-03-11] MEDS: FUROSEMIDE 20 MG INJ IV (09:15)
[2019-03-11] MEDS: FLUCONAZOLE 100 MG TAB PO (09:15)
[2019-03-11] MEDS: ENOXAPARIN 40 MG/0.4 ML SYG SC (09:19)
[2019-03-11] MEDS: DOCUSATE SODIUM 100 MG CAP PO (14:05)
[2019-03-11] MEDS: BISACODYL 10 MG SUPP PR (14:06)
[2019-03-11] MEDS: ACETAMINOPHEN 325 MG TAB PO (15:26)
[2019-03-11] MEDS: LEVOFLOXACIN 750MG/D5W (PMX) 150 ML IVPB (16:38)
[2019-03-11] MEDS: NA PHOSPHATE/BIPHOS 133 ML ENEMA PR (16:44)
[2019-03-11] MEDS: FENTAnyl (DRIP) 1000 mcg/100mL 100 ML IV (21:07)
[2019-03-12] MEDS: PIPER-TAZO 3.375 GM IV (PMX) 100 ML IVPB ×5 (00:01→23:24)
[2019-03-12] MEDS: INSULIN ASPART [NOVOLOG] 3 ML PEN SC ×6 (00:03→20:30)
[2019-03-12] MEDS: MIDAZOLAM (DRIP) 50 mg/50 mL 50 ML IV ×3 (01:19→18:30)
[2019-03-12] MEDS: ALBUTEROL HFA 8 GM INHALER INH ×4 (01:27→19:31)
[2019-03-12] MEDS: IPRATROPIUM (HFA) 12.9 GM INHALER INH ×4 (01:27→19:31)
[2019-03-12] MEDS: VANCOMYCIN HCL 1.75 GM in SOD CHLORIDE 0.9% 500 ML IVPB ×2 (05:20→18:22)
[2019-03-12] MEDS: LEVOTHYROXINE 88 MCG TAB PO (05:20)
[2019-03-12 06:16] LABS: VANCOMYCIN,TROUGH 12.4 ug/ml (10.0-20.0)
[2019-03-12] MEDS: PROPOFOL 100 ML IV ×2 (09:36→19:13)
[2019-03-12] MEDS: DOCUSATE SODIUM 10 MG/ML (10ML CUP) NGT ×2 (11:15→20:28)
[2019-03-12] MEDS: FAMOTIDINE 20 MG TAB NGT ×2 (11:15→20:28)
[2019-03-12] MEDS: FLUCONAZOLE 100 MG TAB PO (11:15)
[2019-03-12] MEDS: ENOXAPARIN 40 MG/0.4 ML SYG SC (11:16)
[2019-03-12] MEDS: FUROSEMIDE 20 MG INJ IV ×2 (11:17→17:27)
[2019-03-12] MEDS: METHYLPREDNISOLONE 40 MG INJ IV ×2 (11:17→20:28)
[2019-03-12] MEDS: SOD CHLORIDE 0.9% 100 ML (11:22)
[2019-03-12] MEDS: LEVOFLOXACIN 750MG/D5W (PMX) 150 ML IVPB (16:15)
[2019-03-12] MEDS: ACETAMINOPHEN 325 MG TAB PO ×2 (17:26→23:24)
[2019-03-13] MEDS: INSULIN ASPART [NOVOLOG] 3 ML PEN SC ×6 (01:00→20:36)
[2019-03-13] MEDS: ALBUTEROL HFA 8 GM INHALER INH ×4 (01:52→20:51)
[2019-03-13] MEDS: IPRATROPIUM (HFA) 12.9 GM INHALER INH ×4 (01:52→20:51)
[2019-03-13] MEDS: MIDAZOLAM (DRIP) 50 mg/50 mL 50 ML IV ×3 (02:33→19:30)
[2019-03-13] MEDS: VANCOMYCIN HCL 1.75 GM in SOD CHLORIDE 0.9% 500 ML IVPB (04:17)
[2019-03-13 05:07] LABS: ADD MAN DIFF? NO
[2019-03-13] MEDS: PIPER-TAZO 3.375 GM IV (PMX) 100 ML IVPB ×2 (05:10→13:18)
[2019-03-13] MEDS: FUROSEMIDE 20 MG INJ IV ×2 (05:10→17:14)
[2019-03-13 05:19] LABS: WHITE BLOOD COUNT 11.5 10^3/ul (4.8-10.8)
[2019-03-13 05:19] LABS: ABNORMAL IP MESSAGE 1; BASOPHIL # 0.1 10^3/ul (0.0-0.1); BASOPHILS % 0.4 % (0.0-2.0); HEMATOCRIT 43.4 % (37.0-47.0); HEMOGLOBIN 13.1 g/dl (12.0-16.0); LYMPHOCYTES # 0.6 10^3/ul (0.8-2.9); LYMPHOCYTES % 5.1 % (15.0-51.0); MEAN CORPUSCULAR HEMOGLOBIN 26.8 pg (29.0-33.0); MEAN CORPUSCULAR HGB CONC 30.2 g/dl (32.0-37.0); MEAN CORPUSCULAR VOLUME 88.8 fl (82.0-101.0); MEAN PLATELET VOLUME 9.8 fl (7.4-10.4); MONOCYTE # 1.1 10^3/ul (0.3-0.9); MONOCYTES % 9.9 % (0.0-11.0); NEUTROPHIL # 9.6 10^3/ul (1.6-7.5); PLATELET COUNT 241 10^3/UL (140-415); RED BLOOD COUNT 4.89 10^6/ul (4.20-5.40); RED CELL DISTRIBUTION WIDTH 19.7 % (11.5-14.5)
[2019-03-13 05:20] LABS: POSITIVE DIFF @See below
[2019-03-13] MEDS: PROPOFOL 100 ML IV ×3 (05:22→22:01)
[2019-03-13 05:45] LABS: ANION GAP 7 (5-13); BLOOD UREA NITROGEN 25 mg/dl (7-20); CALCIUM 8.7 mg/dl (8.4-10.2); CARBON DIOXIDE 30 mmol/L (21-31); CHLORIDE 100 mmol/L (97-110); CREATININE 0.67 mg/dl (0.44-1.00); Estimated GFR > 60 mL/min (>60); GLUCOSE 156 mg/dl (70-220); POTASSIUM 4.2 mmol/L (3.5-5.1); SODIUM 137 mmol/L (135-144)
[2019-03-13] MEDS: FENTAnyl (DRIP) 1000 mcg/100mL 100 ML IV (06:02)
[2019-03-13] MEDS: LEVOTHYROXINE 88 MCG TAB PO (06:30)
[2019-03-13] MEDS: SOD CHLORIDE 0.9% 100 ML (08:00)
[2019-03-13] MEDS: IOHEXOL 300MG/ML 150 ML BTL ×2 (08:00)
[2019-03-13] MEDS: FAMOTIDINE 20 MG TAB NGT ×2 (09:06→20:37)
[2019-03-13] MEDS: FLUCONAZOLE 100 MG TAB PO (09:06)
[2019-03-13] MEDS: DOCUSATE SODIUM 10 MG/ML (10ML CUP) NGT ×2 (09:06→20:36)
[2019-03-13] MEDS: METHYLPREDNISOLONE 40 MG INJ IV ×2 (09:06→20:38)
[2019-03-13] MEDS: ENOXAPARIN 40 MG/0.4 ML SYG SC (09:10)
[2019-03-13] MEDS: metroNIDAZOLE 500 MG/NS (PMX) 100 ML IVPB ×2 (16:16→22:01)
[2019-03-13] MEDS: CEFEPIME 1GM/50 ML (PMX) 50 ML IVPB (20:37)
[2019-03-14] MEDS: INSULIN ASPART [NOVOLOG] 3 ML PEN SC ×6 (00:27→21:00)
[2019-03-14] MEDS: IPRATROPIUM (HFA) 12.9 GM INHALER INH ×4 (01:10→19:37)
[2019-03-14] MEDS: ALBUTEROL HFA 8 GM INHALER INH ×4 (01:10→19:37)
[2019-03-14] MEDS: ACETAMINOPHEN 325 MG TAB PO (01:37)
[2019-03-14] MEDS: MIDAZOLAM (DRIP) 50 mg/50 mL 50 ML IV ×3 (04:35→21:14)
[2019-03-14] MEDS: metroNIDAZOLE 500 MG/NS (PMX) 100 ML IVPB ×3 (05:28→21:15)
[2019-03-14] MEDS: FUROSEMIDE 20 MG INJ IV ×2 (05:28→17:43)
[2019-03-14 05:39] LABS: ADD MAN DIFF? NO
[2019-03-14 05:42] LABS: ABNORMAL IP MESSAGE 1; BASOPHILS % 0.3 % (0.0-2.0); HEMATOCRIT 42.5 % (37.0-47.0); HEMOGLOBIN 13.1 g/dl (12.0-16.0); LYMPHOCYTES # 0.5 10^3/ul (0.8-2.9); LYMPHOCYTES % 3.8 % (15.0-51.0); MEAN CORPUSCULAR HEMOGLOBIN 26.8 pg (29.0-33.0); MEAN CORPUSCULAR HGB CONC 30.8 g/dl (32.0-37.0); MEAN CORPUSCULAR VOLUME 87.1 fl (82.0-101.0); MEAN PLATELET VOLUME 10.2 fl (7.4-10.4); MONOCYTE # 0.8 10^3/ul (0.3-0.9); MONOCYTES % 6.5 % (0.0-11.0); NEUTROPHIL # 11.2 10^3/ul (1.6-7.5); NEUTROPHILS % 87.9 % (39.0-77.0); PLATELET COUNT 269 10^3/UL (140-415); RED BLOOD COUNT 4.88 10^6/ul (4.20-5.40)
[2019-03-14 05:42] LABS: WHITE BLOOD COUNT 12.7 10^3/ul (4.8-10.8)
[2019-03-14 05:48] LABS: POSITIVE DIFF @See below
[2019-03-14 06:18] LABS: ANION GAP 7 (5-13); BLOOD UREA NITROGEN 28 mg/dl (7-20); CALCIUM 8.6 mg/dl (8.4-10.2); CARBON DIOXIDE 31 mmol/L (21-31); CHLORIDE 99 mmol/L (97-110); CREATININE 0.61 mg/dl (0.44-1.00); Estimated GFR > 60 mL/min (>60); GLUCOSE 173 mg/dl (70-220); POTASSIUM 4.2 mmol/L (3.5-5.1); SODIUM 137 mmol/L (135-144)
[2019-03-14] MEDS: LEVOTHYROXINE 88 MCG TAB PO (06:27)
[2019-03-14] MEDS: FAMOTIDINE 20 MG TAB NGT ×2 (08:09→21:15)
[2019-03-14] MEDS: FLUCONAZOLE 100 MG TAB PO (08:09)
[2019-03-14] MEDS: METHYLPREDNISOLONE 40 MG INJ IV (08:09)
[2019-03-14] MEDS: ENOXAPARIN 40 MG/0.4 ML SYG SC (08:12)
[2019-03-14] MEDS: CEFEPIME 1GM/50 ML (PMX) 50 ML IVPB ×2 (08:13→21:15)
[2019-03-14] MEDS: DOCUSATE SODIUM 10 MG/ML (10ML CUP) NGT ×2 (08:14→21:15)
[2019-03-14] MEDS: PROPOFOL 100 ML IV (12:15)
[2019-03-14] MEDS: FENTAnyl (DRIP) 1000 mcg/100mL 100 ML IV (19:21)
[2019-03-15] MEDS: INSULIN ASPART [NOVOLOG] 3 ML PEN SC ×6 (01:00→20:41)
[2019-03-15] MEDS: IPRATROPIUM (HFA) 12.9 GM INHALER INH ×4 (01:31→19:32)
[2019-03-15] MEDS: ALBUTEROL HFA 8 GM INHALER INH ×4 (01:31→19:32)
[2019-03-15] MEDS: PROPOFOL 100 ML IV (01:55)
[2019-03-15 05:08] LABS: ADD MAN DIFF? NO
[2019-03-15] MEDS: metroNIDAZOLE 500 MG/NS (PMX) 100 ML IVPB ×3 (05:08→22:40)
[2019-03-15] MEDS: FUROSEMIDE 20 MG INJ IV (05:08)
[2019-03-15 05:16] LABS: BASOPHIL # 0.1 10^3/ul (0.0-0.1); EOSINOPHILS % 0.2 % (0.0-7.0); HEMATOCRIT 43.8 % (37.0-47.0); HEMOGLOBIN 13.4 g/dl (12.0-16.0); LYMPHOCYTES # 1.5 10^3/ul (0.8-2.9); LYMPHOCYTES % 13.5 % (15.0-51.0); MEAN CORPUSCULAR HEMOGLOBIN 27.1 pg (29.0-33.0); MEAN CORPUSCULAR HGB CONC 30.6 g/dl (32.0-37.0); MEAN CORPUSCULAR VOLUME 88.7 fl (82.0-101.0); MEAN PLATELET VOLUME 9.9 fl (7.4-10.4); MONOCYTE # 1.1 10^3/ul (0.3-0.9); MONOCYTES % 9.9 % (0.0-11.0); NEUTROPHILS % 72.9 % (39.0-77.0); PLATELET COUNT 274 10^3/UL (140-415); RED BLOOD COUNT 4.94 10^6/ul (4.20-5.40); RED CELL DISTRIBUTION WIDTH 19.9 % (11.5-14.5)
[2019-03-15 05:37] LABS: ALANINE AMINOTRANSFERASE 26 IU/L (13-69); ALBUMIN 3.2 g/dl (3.3-4.9); ALBUMIN/GLOBULIN RATIO 1.06; ALKALINE PHOSPHATASE 39 IU/L (42-121); ANION GAP 8 (5-13); ASPARTATE AMINO TRANSFERASE 15 IU/L (15-46); BILIRUBIN,INDIRECT 0.3 mg/dl (0-1.1); BILIRUBIN,TOTAL 0.3 mg/dl (0.2-1.3); BLOOD UREA NITROGEN 34 mg/dl (7-20); CALCIUM 8.4 mg/dl (8.4-10.2); CARBON DIOXIDE 32 mmol/L (21-31); CHLORIDE 100 mmol/L (97-110); CREATININE 0.76 mg/dl (0.44-1.00); Estimated GFR > 60 mL/min (>60); GLUCOSE 136 mg/dl (70-220); POTASSIUM 3.3 mmol/L (3.5-5.1); SODIUM 140 mmol/L (135-144); TOTAL PROTEIN 6.2 g/dl (6.1-8.1)
[2019-03-15 06:00] LABS: MAGNESIUM 2.5 mg/dl (1.7-2.5)
[2019-03-15 06:00] LABS: PHOSPHORUS 3.1 mg/dl (2.5-4.9)
[2019-03-15] MEDS: LEVOTHYROXINE 88 MCG TAB PO (06:10)
[2019-03-15] MEDS: MIDAZOLAM (DRIP) 50 mg/50 mL 50 ML IV (06:10)
[2019-03-15] MEDS: CEFEPIME 1GM/50 ML (PMX) 50 ML IVPB ×2 (08:08→20:59)
[2019-03-15] MEDS: FAMOTIDINE 20 MG TAB NGT ×2 (08:08→21:00)
[2019-03-15] MEDS: FLUCONAZOLE 100 MG TAB PO (08:08)
[2019-03-15] MEDS: DOCUSATE SODIUM 10 MG/ML (10ML CUP) NGT ×2 (08:09→20:59)
[2019-03-15] MEDS: ENOXAPARIN 40 MG/0.4 ML SYG SC (08:12)
[2019-03-15] MEDS: POTASSIUM CHLORIDE 100 ML IVPB ×2 (11:09→13:20)
[2019-03-15] MEDS: DEXMEDETOMIDINE IN DEXTROSE 5% 50 ML IV (17:56)
[2019-03-15] MEDS: SCOPOLAMINE 1.5 MG PATCH TRANSDERM (22:40)
[2019-03-16] MEDS: PROPOFOL 100 ML IV ×3 (00:30→23:09)
[2019-03-16] MEDS: IPRATROPIUM (HFA) 12.9 GM INHALER INH ×4 (01:11→19:24)
[2019-03-16] MEDS: ALBUTEROL HFA 8 GM INHALER INH ×4 (01:11→19:24)
[2019-03-16] MEDS: INSULIN ASPART [NOVOLOG] 3 ML PEN SC ×6 (01:32→20:17)
[2019-03-16] MEDS: metroNIDAZOLE 500 MG/NS (PMX) 100 ML IVPB ×3 (05:18→22:12)
[2019-03-16 05:23] LABS: ADD MAN DIFF? NO
[2019-03-16 05:25] LABS: WHITE BLOOD COUNT 11.7 10^3/ul (4.8-10.8)
[2019-03-16 05:25] LABS: BASOPHIL # 0.1 10^3/ul (0.0-0.1); BASOPHILS % 0.6 % (0.0-2.0); EOSINOPHILS # 0.1 10^3/ul (0.0-0.5); EOSINOPHILS % 1.2 % (0.0-7.0); HEMATOCRIT 46.1 % (37.0-47.0); HEMOGLOBIN 14.4 g/dl (12.0-16.0); LYMPHOCYTES # 0.6 10^3/ul (0.8-2.9); LYMPHOCYTES % 5.1 % (15.0-51.0); MEAN CORPUSCULAR HEMOGLOBIN 27.3 pg (29.0-33.0); MEAN CORPUSCULAR HGB CONC 31.2 g/dl (32.0-37.0); MEAN CORPUSCULAR VOLUME 87.3 fl (82.0-101.0); MEAN PLATELET VOLUME 9.7 fl (7.4-10.4); MONOCYTE # 0.7 10^3/ul (0.3-0.9); MONOCYTES % 5.7 % (0.0-11.0); NEUTROPHILS % 85.7 % (39.0-77.0); PLATELET COUNT 269 10^3/UL (140-415); RED BLOOD COUNT 5.28 10^6/ul (4.20-5.40)
[2019-03-16 05:51] LABS: MAGNESIUM 2.4 mg/dl (1.7-2.5)
[2019-03-16 05:51] LABS: PHOSPHORUS 3.7 mg/dl (2.5-4.9)
[2019-03-16 05:58] LABS: ALANINE AMINOTRANSFERASE 27 IU/L (13-69); ALBUMIN 3.2 g/dl (3.3-4.9); ALKALINE PHOSPHATASE 39 IU/L (42-121); ANION GAP 8 (5-13); ASPARTATE AMINO TRANSFERASE 20 IU/L (15-46); BILIRUBIN,INDIRECT 0.4 mg/dl (0-1.1); BILIRUBIN,TOTAL 0.4 mg/dl (0.2-1.3); BLOOD UREA NITROGEN 32 mg/dl (7-20); CARBON DIOXIDE 30 mmol/L (21-31); CHLORIDE 103 mmol/L (97-110); CREATININE 0.73 mg/dl (0.44-1.00); Estimated GFR > 60 mL/min (>60); GLUCOSE 171 mg/dl (70-220); POTASSIUM 3.5 mmol/L (3.5-5.1); SODIUM 141 mmol/L (135-144); TOTAL PROTEIN 6.1 g/dl (6.1-8.1)
[2019-03-16] MEDS: LEVOTHYROXINE 88 MCG TAB PO (06:30)
[2019-03-16] MEDS: DEXMEDETOMIDINE IN DEXTROSE 5% 50 ML IV ×2 (06:56→22:17)
[2019-03-16] MEDS: CEFEPIME 1GM/50 ML (PMX) 50 ML IVPB ×2 (09:00→20:15)
[2019-03-16] MEDS: DOCUSATE SODIUM 10 MG/ML (10ML CUP) NGT ×2 (09:00→20:15)
[2019-03-16] MEDS: FLUCONAZOLE 100 MG TAB PO (09:01)
[2019-03-16] MEDS: FAMOTIDINE 20 MG TAB NGT ×2 (09:01→20:15)
[2019-03-16] MEDS: FUROSEMIDE 20 MG INJ IV (09:01)
[2019-03-16] MEDS: ENOXAPARIN 40 MG/0.4 ML SYG SC (09:11)
[2019-03-17] MEDS: INSULIN ASPART [NOVOLOG] 3 ML PEN SC ×6 (01:00→21:00)
[2019-03-17] MEDS: ALBUTEROL HFA 8 GM INHALER INH ×4 (01:44→19:28)
[2019-03-17] MEDS: IPRATROPIUM (HFA) 12.9 GM INHALER INH ×4 (01:44→19:28)
[2019-03-17] MEDS: DEXMEDETOMIDINE IN DEXTROSE 5% 50 ML IV ×2 (04:23→19:53)
[2019-03-17 05:14] LABS: ADD MAN DIFF? NO
[2019-03-17 05:17] LABS: BASOPHIL # 0.1 10^3/ul (0.0-0.1); BASOPHILS % 0.8 % (0.0-2.0); EOSINOPHILS # 0.2 10^3/ul (0.0-0.5); EOSINOPHILS % 1.6 % (0.0-7.0); LYMPHOCYTES # 0.7 10^3/ul (0.8-2.9); LYMPHOCYTES % 6.7 % (15.0-51.0); MEAN CORPUSCULAR HEMOGLOBIN 27.3 pg (29.0-33.0); MEAN CORPUSCULAR HGB CONC 31.1 g/dl (32.0-37.0); MEAN CORPUSCULAR VOLUME 87.9 fl (82.0-101.0); MEAN PLATELET VOLUME 9.5 fl (7.4-10.4); MONOCYTE # 0.6 10^3/ul (0.3-0.9); MONOCYTES % 5.3 % (0.0-11.0); NEUTROPHIL # 9.3 10^3/ul (1.6-7.5); NEUTROPHILS % 83.4 % (39.0-77.0); PLATELET COUNT 258 10^3/UL (140-415); RED BLOOD COUNT 5.12 10^6/ul (4.20-5.40); RED CELL DISTRIBUTION WIDTH 19.9 % (11.5-14.5)
[2019-03-17 05:17] LABS: WHITE BLOOD COUNT 11.1 10^3/ul (4.8-10.8)
[2019-03-17 05:31] LABS: MAGNESIUM 2.7 mg/dl (1.7-2.5)
[2019-03-17 05:31] LABS: PHOSPHORUS 4.4 mg/dl (2.5-4.9)
[2019-03-17 05:36] LABS: ALANINE AMINOTRANSFERASE 25 IU/L (13-69); ALBUMIN 3.3 g/dl (3.3-4.9); ALBUMIN/GLOBULIN RATIO 1.06; ALKALINE PHOSPHATASE 39 IU/L (42-121); ANION GAP 7 (5-13); ASPARTATE AMINO TRANSFERASE 23 IU/L (15-46); BILIRUBIN,INDIRECT 0.4 mg/dl (0-1.1); BILIRUBIN,TOTAL 0.4 mg/dl (0.2-1.3); BLOOD UREA NITROGEN 29 mg/dl (7-20); CALCIUM 8.9 mg/dl (8.4-10.2); CARBON DIOXIDE 33 mmol/L (21-31); CHLORIDE 100 mmol/L (97-110); CREATININE 0.73 mg/dl (0.44-1.00); Estimated GFR > 60 mL/min (>60); GLUCOSE 149 mg/dl (70-220); POTASSIUM 3.5 mmol/L (3.5-5.1); SODIUM 140 mmol/L (135-144); TOTAL PROTEIN 6.4 g/dl (6.1-8.1)
[2019-03-17] MEDS: LEVOTHYROXINE 88 MCG TAB PO (05:53)
[2019-03-17] MEDS: metroNIDAZOLE 500 MG/NS (PMX) 100 ML IVPB ×3 (05:54→21:48)
[2019-03-17] MEDS: DOCUSATE SODIUM 10 MG/ML (10ML CUP) NGT (08:42)
[2019-03-17] MEDS: FUROSEMIDE 20 MG INJ IV (09:04)
[2019-03-17] MEDS: CEFEPIME 1GM/50 ML (PMX) 50 ML IVPB ×2 (09:04→21:06)
[2019-03-17] MEDS: FLUCONAZOLE 100 MG TAB PO (09:04)
[2019-03-17] MEDS: FAMOTIDINE 20 MG TAB NGT ×2 (09:05→21:06)
[2019-03-17] MEDS: ENOXAPARIN 40 MG/0.4 ML SYG SC (09:15)
[2019-03-17] MEDS: PROPOFOL 100 ML IV ×2 (12:12→21:49)
[2019-03-17] MEDS: ACETAMINOPHEN 325 MG TAB PO (14:40)
[2019-03-18] MEDS: INSULIN ASPART [NOVOLOG] 3 ML PEN SC ×6 (01:00→20:04)
[2019-03-18] MEDS: IPRATROPIUM (HFA) 12.9 GM INHALER INH ×4 (01:07→19:37)
[2019-03-18] MEDS: ALBUTEROL HFA 8 GM INHALER INH ×4 (01:07→19:37)
[2019-03-18] MEDS: DEXMEDETOMIDINE IN DEXTROSE 5% 50 ML IV ×3 (05:06→22:09)
[2019-03-18 05:23] LABS: ADD MAN DIFF? NO
[2019-03-18 05:42] LABS: WHITE BLOOD COUNT 9.8 10^3/ul (4.8-10.8)
[2019-03-18 05:42] LABS: BASOPHIL # 0.1 10^3/ul (0.0-0.1); BASOPHILS % 0.9 % (0.0-2.0); EOSINOPHILS # 0.3 10^3/ul (0.0-0.5); EOSINOPHILS % 2.7 % (0.0-7.0); HEMATOCRIT 43.8 % (37.0-47.0); HEMOGLOBIN 13.7 g/dl (12.0-16.0); LYMPHOCYTES % 10.5 % (15.0-51.0); MEAN CORPUSCULAR HEMOGLOBIN 27.6 pg (29.0-33.0); MEAN CORPUSCULAR HGB CONC 31.3 g/dl (32.0-37.0); MEAN CORPUSCULAR VOLUME 88.3 fl (82.0-101.0); MEAN PLATELET VOLUME 10.2 fl (7.4-10.4); MONOCYTE # 0.6 10^3/ul (0.3-0.9); MONOCYTES % 6.4 % (0.0-11.0); NEUTROPHIL # 7.6 10^3/ul (1.6-7.5); NEUTROPHILS % 77.4 % (39.0-77.0); RED BLOOD COUNT 4.96 10^6/ul (4.20-5.40); RED CELL DISTRIBUTION WIDTH 19.9 % (11.5-14.5)
[2019-03-18 05:43] LABS: PLATELET COUNT 196 10^3/UL (140-415); POSITIVE DIFF @See below
[2019-03-18] MEDS: metroNIDAZOLE 500 MG/NS (PMX) 100 ML IVPB ×3 (06:04→21:02)
[2019-03-18] MEDS: LEVOTHYROXINE 88 MCG TAB PO (06:05)
[2019-03-18 06:08] LABS: ANION GAP 6 (5-13); BLOOD UREA NITROGEN 25 mg/dl (7-20); CALCIUM 8.7 mg/dl (8.4-10.2); CARBON DIOXIDE 33 mmol/L (21-31); CHLORIDE 100 mmol/L (97-110); CREATININE 0.72 mg/dl (0.44-1.00); Estimated GFR > 60 mL/min (>60); GLUCOSE 125 mg/dl (70-220); POTASSIUM 3.1 mmol/L (3.5-5.1); SODIUM 139 mmol/L (135-144)
[2019-03-18] MEDS: FAMOTIDINE 20 MG TAB NGT ×2 (09:09→20:04)
[2019-03-18] MEDS: FUROSEMIDE 20 MG INJ IV (09:09)
[2019-03-18] MEDS: FLUCONAZOLE 100 MG TAB PO (09:09)
[2019-03-18] MEDS: ENOXAPARIN 40 MG/0.4 ML SYG SC (09:12)
[2019-03-18] MEDS: POTASSIUM CHLORIDE 100 ML IVPB ×2 (11:33→13:12)
[2019-03-18] MEDS: PROPOFOL 100 ML IV (11:35)
[2019-03-18 12:37] LABS: AADO2 Arterial 83.3 mmHg (7.0-24.0); Allen Test ACCEPTAB; Arterial Base Excess 6.6 mmol/L (-3.0-3); Arterial Blood Gas Oxygen Sat 96.8 mmHG (95.0-98.0); Arterial COHb 0.6 % (0.0-3.0); Arterial Fraction of Oxyhgb 95.9 % (93.0-99.0); Arterial HCO3 29.9 mmol/L (22.0-26.0); Arterial MetHb 0.3 % (0.0-1.5); Arterial pCO2 38.3 mmhg (35-45); Blood Gas PS 10; MODE VENT - CPAP; Site Right Radial
[2019-03-19] MEDS: PROPOFOL 100 ML IV ×3 (00:30→20:52)
[2019-03-19] MEDS: INSULIN ASPART [NOVOLOG] 3 ML PEN SC ×6 (00:58→20:51)
[2019-03-19] MEDS: DEXMEDETOMIDINE IN DEXTROSE 5% 50 ML IV ×3 (00:59→05:06)
[2019-03-19] MEDS: IPRATROPIUM (HFA) 12.9 GM INHALER INH ×2 (01:50→08:21)
[2019-03-19] MEDS: ALBUTEROL HFA 8 GM INHALER INH ×2 (01:50→08:21)
[2019-03-19] MEDS: metroNIDAZOLE 500 MG/NS (PMX) 100 ML IVPB ×3 (05:07→20:52)
[2019-03-19] MEDS: LEVOTHYROXINE 88 MCG TAB PO (05:10)
[2019-03-19 05:16] LABS: ADD MAN DIFF? NO
[2019-03-19 05:26] LABS: BASOPHIL # 0.1 10^3/ul (0.0-0.1); BASOPHILS % 1.3 % (0.0-2.0); EOSINOPHILS # 0.2 10^3/ul (0.0-0.5); EOSINOPHILS % 2.8 % (0.0-7.0); HEMOGLOBIN 13.8 g/dl (12.0-16.0); LYMPHOCYTES # 0.9 10^3/ul (0.8-2.9); LYMPHOCYTES % 11.9 % (15.0-51.0); MEAN CORPUSCULAR HEMOGLOBIN 27.2 pg (29.0-33.0); MEAN CORPUSCULAR HGB CONC 30.7 g/dl (32.0-37.0); MEAN CORPUSCULAR VOLUME 88.6 fl (82.0-101.0); MEAN PLATELET VOLUME 9.7 fl (7.4-10.4); MONOCYTE # 0.7 10^3/ul (0.3-0.9); NEUTROPHIL # 5.5 10^3/ul (1.6-7.5); NEUTROPHILS % 72.9 % (39.0-77.0); PLATELET COUNT 238 10^3/UL (140-415); RED BLOOD COUNT 5.08 10^6/ul (4.20-5.40)
[2019-03-19 05:26] LABS: WHITE BLOOD COUNT 7.5 10^3/ul (4.8-10.8)
[2019-03-19 05:48] LABS: ANION GAP 7 (5-13); BLOOD UREA NITROGEN 21 mg/dl (7-20); CALCIUM 8.9 mg/dl (8.4-10.2); CARBON DIOXIDE 32 mmol/L (21-31); CHLORIDE 102 mmol/L (97-110); Estimated GFR > 60 mL/min (>60); GLUCOSE 141 mg/dl (70-220); MAGNESIUM 2.4 mg/dl (1.7-2.5); PHOSPHORUS 3.7 mg/dl (2.5-4.9); POTASSIUM 3.8 mmol/L (3.5-5.1); SODIUM 141 mmol/L (135-144)
[2019-03-19] MEDS: FLUCONAZOLE 100 MG TAB PO (09:35)
[2019-03-19] MEDS: ENOXAPARIN 40 MG/0.4 ML SYG SC (09:37)
[2019-03-19] MEDS: FUROSEMIDE 20 MG INJ IV (09:38)
[2019-03-19] MEDS: FAMOTIDINE 20 MG TAB NGT ×3 (10:30→20:53)
[2019-03-19] MEDS: ALBUTEROL/IPRATROPIUM (NEB) 3 ML AMP HHN ×2 (14:30→22:07)
[2019-03-20] MEDS: INSULIN ASPART [NOVOLOG] 3 ML PEN SC ×6 (00:54→20:24)
[2019-03-20] MEDS: ALBUTEROL/IPRATROPIUM (NEB) 3 ML AMP HHN ×4 (02:05→20:14)
[2019-03-20 04:51] LABS: ADD MAN DIFF? NO
[2019-03-20 04:59] LABS: BASOPHIL # 0.1 10^3/ul (0.0-0.1); BASOPHILS % 1.3 % (0.0-2.0); EOSINOPHILS # 0.1 10^3/ul (0.0-0.5); EOSINOPHILS % 1.3 % (0.0-7.0); HEMATOCRIT 46.1 % (37.0-47.0); HEMOGLOBIN 14.5 g/dl (12.0-16.0); LYMPHOCYTES # 1.2 10^3/ul (0.8-2.9); LYMPHOCYTES % 14.9 % (15.0-51.0); MEAN CORPUSCULAR HEMOGLOBIN 27.4 pg (29.0-33.0); MEAN CORPUSCULAR HGB CONC 31.5 g/dl (32.0-37.0); MEAN PLATELET VOLUME 10.2 fl (7.4-10.4); MONOCYTE # 0.8 10^3/ul (0.3-0.9); MONOCYTES % 10.3 % (0.0-11.0); NEUTROPHIL # 5.4 10^3/ul (1.6-7.5); NEUTROPHILS % 69.3 % (39.0-77.0); PLATELET COUNT 260 10^3/UL (140-415); RED CELL DISTRIBUTION WIDTH 20.6 % (11.5-14.5)
[2019-03-20 04:59] LABS: WHITE BLOOD COUNT 7.9 10^3/ul (4.8-10.8)
[2019-03-20] MEDS: LEVOTHYROXINE 88 MCG TAB PO (05:27)
[2019-03-20] MEDS: metroNIDAZOLE 500 MG/NS (PMX) 100 ML IVPB ×2 (05:27→17:44)
[2019-03-20 05:34] LABS: ANION GAP 12 (5-13); BLOOD UREA NITROGEN 22 mg/dl (7-20); CALCIUM 8.9 mg/dl (8.4-10.2); CARBON DIOXIDE 28 mmol/L (21-31); CHLORIDE 99 mmol/L (97-110); CREATININE 0.77 mg/dl (0.44-1.00); Estimated GFR > 60 mL/min (>60); GLUCOSE 100 mg/dl (70-220); MAGNESIUM 2.2 mg/dl (1.7-2.5); POTASSIUM 3.6 mmol/L (3.5-5.1); SODIUM 139 mmol/L (135-144)
[2019-03-20] MEDS: FAMOTIDINE 20 MG TAB NGT ×2 (08:35→20:25)
[2019-03-20] MEDS: FUROSEMIDE 20 MG INJ IV (08:35)
[2019-03-20] MEDS: ENOXAPARIN 40 MG/0.4 ML SYG SC (08:37)
[2019-03-20] MEDS: FLUCONAZOLE 100 MG TAB PO (08:40)
[2019-03-20] MEDS: PROPOFOL 100 ML IV (12:30)
[2019-03-21] MEDS: metroNIDAZOLE 500 MG/NS (PMX) 100 ML IVPB ×2 (00:25→05:36)
[2019-03-21] MEDS: INSULIN ASPART [NOVOLOG] 3 ML PEN SC ×6 (00:30→20:37)
[2019-03-21] MEDS: ALBUTEROL/IPRATROPIUM (NEB) 3 ML AMP HHN ×4 (01:42→20:24)
[2019-03-21 05:10] LABS: ADD MAN DIFF? NO
[2019-03-21 05:15] LABS: WHITE BLOOD COUNT 7.1 10^3/ul (4.8-10.8)
[2019-03-21 05:15] LABS: BASOPHIL # 0.1 10^3/ul (0.0-0.1); BASOPHILS % 1.1 % (0.0-2.0); EOSINOPHILS # 0.1 10^3/ul (0.0-0.5); EOSINOPHILS % 1.7 % (0.0-7.0); HEMATOCRIT 43.5 % (37.0-47.0); HEMOGLOBIN 13.4 g/dl (12.0-16.0); LYMPHOCYTES # 0.7 10^3/ul (0.8-2.9); LYMPHOCYTES % 9.9 % (15.0-51.0); MEAN CORPUSCULAR HEMOGLOBIN 27.3 pg (29.0-33.0); MEAN CORPUSCULAR HGB CONC 30.8 g/dl (32.0-37.0); MEAN CORPUSCULAR VOLUME 88.8 fl (82.0-101.0); MEAN PLATELET VOLUME 10.1 fl (7.4-10.4); MONOCYTE # 0.5 10^3/ul (0.3-0.9); MONOCYTES % 7.6 % (0.0-11.0); NEUTROPHIL # 5.5 10^3/ul (1.6-7.5); NEUTROPHILS % 77.9 % (39.0-77.0); PLATELET COUNT 224 10^3/UL (140-415); RED CELL DISTRIBUTION WIDTH 20.5 % (11.5-14.5)
[2019-03-21] MEDS: LEVOTHYROXINE 88 MCG TAB PO (05:36)
[2019-03-21 05:43] LABS: ANION GAP 8 (5-13); BLOOD UREA NITROGEN 15 mg/dl (7-20); CALCIUM 8.9 mg/dl (8.4-10.2); CARBON DIOXIDE 31 mmol/L (21-31); CHLORIDE 99 mmol/L (97-110); CREATININE 0.66 mg/dl (0.44-1.00); Estimated GFR > 60 mL/min (>60); GLUCOSE 112 mg/dl (70-220); MAGNESIUM 2.2 mg/dl (1.7-2.5); PHOSPHORUS 4.2 mg/dl (2.5-4.9); POTASSIUM 3.1 mmol/L (3.5-5.1); SODIUM 138 mmol/L (135-144)
[2019-03-21] MEDS: FLUCONAZOLE 100 MG TAB PO (08:42)
[2019-03-21] MEDS: FAMOTIDINE 20 MG TAB NGT ×2 (08:42→20:36)
[2019-03-21] MEDS: FUROSEMIDE 40 MG INJ IV (08:42)
[2019-03-21] MEDS: ENOXAPARIN 40 MG/0.4 ML SYG SC (08:44)
[2019-03-21] MEDS: POTASSIUM CHLORIDE (SR) 20 MEQ TAB PO (09:39)
[2019-03-22] MEDS: ALBUTEROL/IPRATROPIUM (NEB) 3 ML AMP HHN ×4 (02:38→20:09)
[2019-03-22 06:44] LABS: ADD MAN DIFF? NO
[2019-03-22 06:46] LABS: BASOPHIL # 0.1 10^3/ul (0.0-0.1); BASOPHILS % 1.9 % (0.0-2.0); EOSINOPHILS # 0.2 10^3/ul (0.0-0.5); EOSINOPHILS % 2.6 % (0.0-7.0); HEMATOCRIT 43.5 % (37.0-47.0); HEMOGLOBIN 13.3 g/dl (12.0-16.0); LYMPHOCYTES # 0.9 10^3/ul (0.8-2.9); LYMPHOCYTES % 16.2 % (15.0-51.0); MEAN CORPUSCULAR HEMOGLOBIN 27.7 pg (29.0-33.0); MEAN CORPUSCULAR HGB CONC 30.6 g/dl (32.0-37.0); MEAN CORPUSCULAR VOLUME 90.4 fl (82.0-101.0); MEAN PLATELET VOLUME 10.5 fl (7.4-10.4); MONOCYTE # 0.4 10^3/ul (0.3-0.9); MONOCYTES % 7.6 % (0.0-11.0); NEUTROPHIL # 3.9 10^3/ul (1.6-7.5); NEUTROPHILS % 68.4 % (39.0-77.0); PLATELET COUNT 199 10^3/UL (140-415); RED BLOOD COUNT 4.81 10^6/ul (4.20-5.40); RED CELL DISTRIBUTION WIDTH 20.2 % (11.5-14.5)
[2019-03-22 06:46] LABS: WHITE BLOOD COUNT 5.7 10^3/ul (4.8-10.8)
[2019-03-22] MEDS: LEVOTHYROXINE 88 MCG TAB PO (07:07)
[2019-03-22 07:27] LABS: ANION GAP 8 (5-13); BLOOD UREA NITROGEN 12 mg/dl (7-20); CALCIUM 8.9 mg/dl (8.4-10.2); CARBON DIOXIDE 29 mmol/L (21-31); CHLORIDE 99 mmol/L (97-110); CREATININE 0.64 mg/dl (0.44-1.00); Estimated GFR > 60 mL/min (>60); GLUCOSE 127 mg/dl (70-220); POTASSIUM 3.7 mmol/L (3.5-5.1); SODIUM 136 mmol/L (135-144)
[2019-03-22] MEDS: INSULIN ASPART [NOVOLOG] 3 ML PEN SC ×4 (07:49→21:00)
[2019-03-22 08:31] LABS: MAGNESIUM 2.1 mg/dl (1.7-2.5)
[2019-03-22 08:31] LABS: PHOSPHORUS 4.6 mg/dl (2.5-4.9)
[2019-03-22] MEDS: FAMOTIDINE 20 MG TAB NGT ×2 (09:31→21:21)
[2019-03-22] MEDS: FUROSEMIDE 40 MG INJ IV (09:31)
[2019-03-22] MEDS: ENOXAPARIN 40 MG/0.4 ML SYG SC (09:32)
[2019-03-22] MEDS: ACETAMINOPHEN 325 MG TAB PO (18:11)
[2019-03-23] MEDS: ALBUTEROL/IPRATROPIUM (NEB) 3 ML AMP HHN ×4 (02:50→20:54)
[2019-03-23] MEDS: LEVOTHYROXINE 88 MCG TAB PO (07:44)
[2019-03-23] MEDS: INSULIN ASPART [NOVOLOG] 3 ML PEN SC ×4 (08:00→20:42)
[2019-03-23] MEDS: FAMOTIDINE 20 MG TAB NGT ×2 (11:10→20:42)
[2019-03-23] MEDS: FUROSEMIDE 40 MG INJ IV (11:10)
[2019-03-23] MEDS: ENOXAPARIN 40 MG/0.4 ML SYG SC (11:12)
[2019-03-23] MEDS ORDERED: MECLIZINE 25 MG TAB PO ×2 (12:30→15:30)
[2019-03-24] MEDS: ALBUTEROL/IPRATROPIUM (NEB) 3 ML AMP HHN ×4 (00:48→19:35)
[2019-03-24] MEDS: LEVOTHYROXINE 88 MCG TAB PO (05:05)
[2019-03-24] MEDS: INSULIN ASPART [NOVOLOG] 3 ML PEN SC ×4 (08:00→21:00)
[2019-03-24] MEDS: FUROSEMIDE 40 MG INJ IV ×2 (10:01→16:25)
[2019-03-24] MEDS: FAMOTIDINE 20 MG TAB NGT ×2 (10:01→20:58)
[2019-03-24] MEDS: ENOXAPARIN 40 MG/0.4 ML SYG SC (10:09)
[2019-03-25] MEDS: ALBUTEROL/IPRATROPIUM (NEB) 3 ML AMP HHN ×4 (02:13→19:46)
[2019-03-25] MEDS: LEVOTHYROXINE 88 MCG TAB PO (06:03)
[2019-03-25] MEDS: FAMOTIDINE 20 MG TAB NGT ×2 (09:07→21:02)
[2019-03-25] MEDS: FUROSEMIDE 40 MG INJ IV (09:08)
[2019-03-25] MEDS: INSULIN ASPART [NOVOLOG] 3 ML PEN SC ×4 (09:09→21:00)
[2019-03-25] MEDS: ENOXAPARIN 40 MG/0.4 ML SYG SC (09:09)
[2019-03-25] MEDS: METOPROLOL 25 MG TAB PO ×2 (15:32→23:00)
[2019-03-25] MEDS: FUROSEMIDE 20 MG INJ IV (17:14)
[2019-03-26] MEDS: ALBUTEROL/IPRATROPIUM (NEB) 3 ML AMP HHN ×4 (01:36→19:30)
[2019-03-26] MEDS: LEVOTHYROXINE 88 MCG TAB PO (06:10)
[2019-03-26 07:45] LABS: ANION GAP 7 (5-13); BLOOD UREA NITROGEN 17 mg/dl (7-20); CALCIUM 9.3 mg/dl (8.4-10.2); CARBON DIOXIDE 35 mmol/L (21-31); CHLORIDE 94 mmol/L (97-110); CREATININE 0.65 mg/dl (0.44-1.00); Estimated GFR > 60 mL/min (>60); GLUCOSE 108 mg/dl (70-220); SODIUM 136 mmol/L (135-144)
[2019-03-26 07:48] LABS: POTASSIUM 2.9 mmol/L (3.5-5.1)
[2019-03-26] MEDS: INSULIN ASPART [NOVOLOG] 3 ML PEN SC ×4 (08:00→21:00)
[2019-03-26 08:27] LABS: ANION GAP 9 (5-13); BLOOD UREA NITROGEN 17 mg/dl (7-20); CALCIUM 9.1 mg/dl (8.4-10.2); CARBON DIOXIDE 34 mmol/L (21-31); CHLORIDE 95 mmol/L (97-110); CREATININE 0.57 mg/dl (0.44-1.00); Estimated GFR > 60 mL/min (>60); GLUCOSE 121 mg/dl (70-220); POTASSIUM 3.3 mmol/L (3.5-5.1); SODIUM 138 mmol/L (135-144)
[2019-03-26] MEDS: POTASSIUM CHLORIDE (SR) 20 MEQ TAB PO ×2 (08:27→10:41)
[2019-03-26] MEDS: METOPROLOL 25 MG TAB PO ×3 (08:28→21:40)
[2019-03-26] MEDS: ENOXAPARIN 40 MG/0.4 ML SYG SC (08:28)
[2019-03-26] MEDS: FAMOTIDINE 20 MG TAB NGT (08:29)
[2019-03-26] MEDS: FUROSEMIDE 40 MG INJ IV (10:41)
[2019-03-26 15:16] LABS: POTASSIUM 3.9 mmol/L (3.5-5.1)
[2019-03-26] MEDS: FAMOTIDINE 20 MG TAB PO (21:35)
[2019-03-26 22:26] LABS: ADD UMIC YES; UR ASCORBIC ACID NEGATIVE (NEGATIVE); UR BILIRUBIN (Dip) NEGATIVE (NEGATIVE); UR BLOOD (Dip) 1+ mg/dL (NEGATIVE); UR CLARITY CLEAR (CLEAR); UR COLOR YELLOW (YELLOW); UR GLUCOSE (Dip) NEGATIVE (NEGATIVE); UR KETONES (Dip) NEGATIVE (NEGATIVE); UR LEUKOCYTE ESTERASE (Dip) NEGATIVE Leu/ul (NEGATIVE); UR NITRITE (Dip) NEGATIVE (NEGATIVE); UR RBC 1 /HPF (0-5); UR TOTAL PROTEIN (Dip) NEGATIVE (NEGATIVE); UR UROBILINOGEN (Dip) NEGATIVE (NEGATIVE); UR WBC 0 /HPF (0-5)
[2019-03-27] MEDS: ALBUTEROL/IPRATROPIUM (NEB) 3 ML AMP HHN ×4 (01:42→19:57)
[2019-03-27] MEDS: LEVOTHYROXINE 88 MCG TAB PO (06:40)
[2019-03-27] MEDS: INSULIN ASPART [NOVOLOG] 3 ML PEN SC ×4 (08:00→21:00)
[2019-03-27] MEDS ORDERED: FAMOTIDINE 20 MG TAB PO (09:00)
[2019-03-27] MEDS: FUROSEMIDE 40 MG INJ IV ×2 (09:00→16:05)
[2019-03-27] MEDS: METOPROLOL 25 MG TAB PO ×3 (09:00→21:00)
[2019-03-27] MEDS: METHYLPHENIDATE 5 MG TAB PO (09:03)
[2019-03-27] MEDS: ENOXAPARIN 40 MG/0.4 ML SYG SC (09:04)
[2019-03-27] MEDS: POTASSIUM CHLORIDE (SR) 20 MEQ TAB PO (09:04)
[2019-03-27] MEDS: FAMOTIDINE 20 MG TAB PO ×2 (09:04→21:05)
[2019-03-27 18:09] LABS: AADO2 Arterial 54.9 mmHg (7.0-24.0); Arterial Base Excess 3.9 mmol/L (-3.0-3); Arterial COHb 0.5 % (0.0-3.0); Arterial Fraction of Oxyhgb 85.3 % (93.0-99.0); Arterial HCO3 27.4 mmol/L (22.0-26.0); Arterial MetHb 0.3 % (0.0-1.5); Arterial pCO2 37.7 mmhg (35-45); MODE ROOM AIR; Site Right Brachial
[2019-03-27] MEDS: ALTEPLASE (CATHFLO) 2 MG INJ CATHETER (18:19)
[2019-03-27 18:41] LABS: TROPONIN-I 0.133 ng/ml (0.000-0.120)
[2019-03-28] MEDS: ALBUTEROL/IPRATROPIUM (NEB) 3 ML AMP HHN ×3 (01:25→20:06)
[2019-03-28 05:49] LABS: ADD MAN DIFF? NO
[2019-03-28 05:57] LABS: WHITE BLOOD COUNT 7.1 10^3/ul (4.8-10.8)
[2019-03-28 05:57] LABS: BASOPHIL # 0.1 10^3/ul (0.0-0.1); BASOPHILS % 0.8 % (0.0-2.0); EOSINOPHILS # 0.1 10^3/ul (0.0-0.5); EOSINOPHILS % 1.1 % (0.0-7.0); HEMATOCRIT 45.2 % (37.0-47.0); HEMOGLOBIN 14.1 g/dl (12.0-16.0); LYMPHOCYTES # 1.2 10^3/ul (0.8-2.9); LYMPHOCYTES % 16.5 % (15.0-51.0); MEAN CORPUSCULAR HEMOGLOBIN 27.7 pg (29.0-33.0); MEAN CORPUSCULAR HGB CONC 31.2 g/dl (32.0-37.0); MEAN CORPUSCULAR VOLUME 88.8 fl (82.0-101.0); MEAN PLATELET VOLUME 9.9 fl (7.4-10.4); MONOCYTE # 0.6 10^3/ul (0.3-0.9); MONOCYTES % 8.5 % (0.0-11.0); NEUTROPHIL # 5.1 10^3/ul (1.6-7.5); NEUTROPHILS % 71.3 % (39.0-77.0); PLATELET COUNT 162 10^3/UL (140-415); RED BLOOD COUNT 5.09 10^6/ul (4.20-5.40); RED CELL DISTRIBUTION WIDTH 21.1 % (11.5-14.5)
[2019-03-28] MEDS: LEVOTHYROXINE 88 MCG TAB PO (06:27)
[2019-03-28 06:47] LABS: ANION GAP 9 (5-13); BLOOD UREA NITROGEN 14 mg/dl (7-20); CARBON DIOXIDE 27 mmol/L (21-31); CHLORIDE 102 mmol/L (97-110); CREATININE 0.55 mg/dl (0.44-1.00); Estimated GFR > 60 mL/min (>60); GLUCOSE 118 mg/dl (70-220); POTASSIUM 3.6 mmol/L (3.5-5.1); SODIUM 138 mmol/L (135-144)
[2019-03-28] MEDS: INSULIN ASPART [NOVOLOG] 3 ML PEN SC ×4 (08:00→21:00)
[2019-03-28] MEDS: FAMOTIDINE 20 MG TAB PO ×2 (08:59→21:46)
[2019-03-28] MEDS: POTASSIUM CHLORIDE (SR) 20 MEQ TAB PO (08:59)
[2019-03-28] MEDS: METOPROLOL 25 MG TAB PO ×2 (09:01→23:11)
[2019-03-28] MEDS: FUROSEMIDE 40 MG INJ IV (09:02)
[2019-03-28] MEDS: ENOXAPARIN 40 MG/0.4 ML SYG SC (09:19)
[2019-03-28 10:48] LABS: TROPONIN-I 0.261 ng/ml (0.000-0.120)
[2019-03-28 12:17] LABS: TROPONIN-I 0.105 ng/ml (0.000-0.120)
[2019-03-28 13:06] LABS: B-TYPE NATRIURETIC PEPTIDE 1570 PG/ML (0-125)
[2019-03-28] MEDS: ASPIRIN (EC) 81 MG TAB PO (14:44)
[2019-03-28] MEDS: IOHEXOL 100 ML (16:33)
[2019-03-28] MEDS: SOD CHLORIDE 0.9% 100 ML (16:33)
[2019-03-28] MEDS ORDERED: HEPARIN 1000 UNITS/ML 10 ML INJ IV ×4 (19:00→22:00)
[2019-03-28] MEDS: HEPARIN 1000 UNITS/ML 10 ML INJ IV ×2 (19:00→22:19)
[2019-03-28 20:05] LABS: ADD MAN DIFF? NO
[2019-03-28 20:09] LABS: WHITE BLOOD COUNT 6.4 10^3/ul (4.8-10.8)
[2019-03-28 20:09] LABS: BASOPHIL # 0.1 10^3/ul (0.0-0.1); BASOPHILS % 0.9 % (0.0-2.0); EOSINOPHILS # 0.1 10^3/ul (0.0-0.5); EOSINOPHILS % 1.9 % (0.0-7.0); HEMATOCRIT 44.4 % (37.0-47.0); HEMOGLOBIN 14.1 g/dl (12.0-16.0); LYMPHOCYTES # 1.1 10^3/ul (0.8-2.9); LYMPHOCYTES % 17.1 % (15.0-51.0); MEAN CORPUSCULAR HEMOGLOBIN 28.1 pg (29.0-33.0); MEAN CORPUSCULAR HGB CONC 31.8 g/dl (32.0-37.0); MEAN CORPUSCULAR VOLUME 88.6 fl (82.0-101.0); MEAN PLATELET VOLUME 9.6 fl (7.4-10.4); MONOCYTE # 0.5 10^3/ul (0.3-0.9); MONOCYTES % 7.8 % (0.0-11.0); NEUTROPHIL # 4.5 10^3/ul (1.6-7.5); NEUTROPHILS % 70.3 % (39.0-77.0); PLATELET COUNT 168 10^3/UL (140-415); RED BLOOD COUNT 5.01 10^6/ul (4.20-5.40); RED CELL DISTRIBUTION WIDTH 20.4 % (11.5-14.5)
[2019-03-28 20:24] LABS: INR 1.04; PROTIME 13.7 Sec (11.9-14.9); PT RATIO 1.1
[2019-03-28] MEDS: HEPARIN 25000 UNITS/250 ML 250 ML IV (22:23)
[2019-03-29 00:22] LABS: TROPONIN-I 0.065 ng/ml (0.000-0.120)
[2019-03-29] MEDS: ALBUTEROL/IPRATROPIUM (NEB) 3 ML AMP HHN ×4 (01:40→20:47)
[2019-03-29 05:09] LABS: ADD MAN DIFF? NO
[2019-03-29 05:17] LABS: BASOPHIL # 0.1 10^3/ul (0.0-0.1); BASOPHILS % 1.2 % (0.0-2.0); EOSINOPHILS # 0.2 10^3/ul (0.0-0.5); EOSINOPHILS % 2.9 % (0.0-7.0); HEMATOCRIT 43.2 % (37.0-47.0); HEMOGLOBIN 13.3 g/dl (12.0-16.0); LYMPHOCYTES # 1.4 10^3/ul (0.8-2.9); LYMPHOCYTES % 26.7 % (15.0-51.0); MEAN CORPUSCULAR HEMOGLOBIN 27.4 pg (29.0-33.0); MEAN CORPUSCULAR HGB CONC 30.8 g/dl (32.0-37.0); MEAN CORPUSCULAR VOLUME 89.1 fl (82.0-101.0); MEAN PLATELET VOLUME 9.8 fl (7.4-10.4); MONOCYTE # 0.5 10^3/ul (0.3-0.9); MONOCYTES % 8.9 % (0.0-11.0); NEUTROPHILS % 57.6 % (39.0-77.0); PLATELET COUNT 166 10^3/UL (140-415); RED BLOOD COUNT 4.85 10^6/ul (4.20-5.40); RED CELL DISTRIBUTION WIDTH 20.2 % (11.5-14.5)
[2019-03-29 05:17] LABS: WHITE BLOOD COUNT 5.2 10^3/ul (4.8-10.8)
[2019-03-29 05:42] LABS: CHOLESTEROL 182 mg/dl (100-200)
[2019-03-29 05:42] LABS: CHOL/HDL RATIO 8.2 RATIO; HDL CHOLESTEROL 22 mg/dl (33-83); LDL CHOLESTEROL,CALCULATED 125 mg/dl; TRIGLYCERIDES 173 mg/dl (0-149)
[2019-03-29 06:20] LABS: MAGNESIUM 1.9 mg/dl (1.7-2.5)
[2019-03-29 06:20] LABS: PHOSPHORUS 5.3 mg/dl (2.5-4.9)
[2019-03-29] MEDS: LEVOTHYROXINE 88 MCG TAB PO (06:27)
[2019-03-29] MEDS: INSULIN ASPART [NOVOLOG] 3 ML PEN SC ×4 (07:35→21:00)
[2019-03-29 07:48] LABS: ANION GAP 10 (5-13); BLOOD UREA NITROGEN 16 mg/dl (7-20); CALCIUM 8.8 mg/dl (8.4-10.2); CARBON DIOXIDE 30 mmol/L (21-31); CHLORIDE 98 mmol/L (97-110); CREATININE 0.55 mg/dl (0.44-1.00); Estimated GFR > 60 mL/min (>60); GLUCOSE 117 mg/dl (70-220); POTASSIUM 3.3 mmol/L (3.5-5.1); SODIUM 138 mmol/L (135-144)
[2019-03-29] MEDS: ASPIRIN (EC) 81 MG TAB PO (08:04)
[2019-03-29] MEDS: FUROSEMIDE 40 MG INJ IV (08:15)
[2019-03-29] MEDS: POTASSIUM CHLORIDE (SR) 20 MEQ TAB PO ×2 (08:16→12:44)
[2019-03-29] MEDS: FAMOTIDINE 20 MG TAB PO ×2 (08:16→21:57)
[2019-03-29] MEDS: METOPROLOL 25 MG TAB PO ×2 (08:43→21:59)
[2019-03-29] MEDS: HEPARIN 25000 UNITS/250 ML 250 ML IV (16:06)
[2019-03-29 16:53] LABS: PARTIAL THROMBOPLASTIN TIME 44.9 Sec (23.0-35.0)
[2019-03-29] MEDS: HEPARIN 1000 UNITS/ML 10 ML INJ IV (17:44)
[2019-03-30 00:08] LABS: PARTIAL THROMBOPLASTIN TIME 116.6 Sec (23.0-35.0)
[2019-03-30] MEDS: ALBUTEROL/IPRATROPIUM (NEB) 3 ML AMP HHN ×4 (01:06→20:55)
[2019-03-30] MEDS: LEVOTHYROXINE 88 MCG TAB PO (06:16)
[2019-03-30 07:06] LABS: ADD MAN DIFF? NO
[2019-03-30 07:08] LABS: WHITE BLOOD COUNT 4.8 10^3/ul (4.8-10.8)
[2019-03-30 07:08] LABS: BASOPHIL # 0.1 10^3/ul (0.0-0.1); BASOPHILS % 1.3 % (0.0-2.0); EOSINOPHILS # 0.1 10^3/ul (0.0-0.5); EOSINOPHILS % 2.9 % (0.0-7.0); HEMATOCRIT 42.9 % (37.0-47.0); HEMOGLOBIN 13.4 g/dl (12.0-16.0); LYMPHOCYTES # 1.3 10^3/ul (0.8-2.9); LYMPHOCYTES % 26.5 % (15.0-51.0); MEAN CORPUSCULAR HEMOGLOBIN 28.1 pg (29.0-33.0); MEAN CORPUSCULAR HGB CONC 31.2 g/dl (32.0-37.0); MEAN CORPUSCULAR VOLUME 89.9 fl (82.0-101.0); MONOCYTE # 0.5 10^3/ul (0.3-0.9); MONOCYTES % 10.5 % (0.0-11.0); NEUTROPHIL # 2.6 10^3/ul (1.6-7.5); NEUTROPHILS % 54.2 % (39.0-77.0); PLATELET COUNT 167 10^3/UL (140-415); RED BLOOD COUNT 4.77 10^6/ul (4.20-5.40); RED CELL DISTRIBUTION WIDTH 20.1 % (11.5-14.5)
[2019-03-30] MEDS: INSULIN ASPART [NOVOLOG] 3 ML PEN SC ×4 (07:35→20:45)
[2019-03-30 07:36] LABS: ALANINE AMINOTRANSFERASE 37 IU/L (13-69); ALBUMIN 3.2 g/dl (3.3-4.9); ALBUMIN/GLOBULIN RATIO 1.06; ALKALINE PHOSPHATASE 58 IU/L (42-121); ANION GAP 5 (5-13); ASPARTATE AMINO TRANSFERASE 25 IU/L (15-46); BILIRUBIN,INDIRECT 0.4 mg/dl (0-1.1); BILIRUBIN,TOTAL 0.4 mg/dl (0.2-1.3); BLOOD UREA NITROGEN 12 mg/dl (7-20); CALCIUM 8.9 mg/dl (8.4-10.2); CARBON DIOXIDE 34 mmol/L (21-31); CHLORIDE 98 mmol/L (97-110); CREATININE 0.62 mg/dl (0.44-1.00); Estimated GFR > 60 mL/min (>60); GLUCOSE 120 mg/dl (70-220); POTASSIUM 4.1 mmol/L (3.5-5.1); SODIUM 137 mmol/L (135-144); TOTAL PROTEIN 6.2 g/dl (6.1-8.1)
[2019-03-30 07:42] LABS: PARTIAL THROMBOPLASTIN TIME 80.6 Sec (23.0-35.0)
[2019-03-30 08:03] LABS: MAGNESIUM 1.9 mg/dl (1.7-2.5)
[2019-03-30 08:03] LABS: PHOSPHORUS 4.8 mg/dl (2.5-4.9)
[2019-03-30] MEDS: ASPIRIN (EC) 81 MG TAB PO (08:21)
[2019-03-30] MEDS: METOPROLOL 25 MG TAB PO ×2 (08:22→20:48)
[2019-03-30] MEDS: POTASSIUM CHLORIDE (SR) 20 MEQ TAB PO (08:22)
[2019-03-30] MEDS: FAMOTIDINE 20 MG TAB PO ×2 (08:23→20:44)
[2019-03-30] MEDS: HEPARIN 25000 UNITS/250 ML 250 ML IV ×2 (08:39→19:28)
[2019-03-31] MEDS: ALBUTEROL/IPRATROPIUM (NEB) 3 ML AMP HHN ×4 (01:32→20:40)
[2019-03-31] MEDS: HEPARIN 25000 UNITS/250 ML 250 ML IV ×2 (05:06→07:39)
[2019-03-31] MEDS: LEVOTHYROXINE 88 MCG TAB PO (06:01)
[2019-03-31 07:00] LABS: WHITE BLOOD COUNT 4.8 10^3/ul (4.8-10.8)
[2019-03-31 07:00] LABS: ABNORMAL IP MESSAGE 1; HEMATOCRIT 42.1 % (37.0-47.0); HEMOGLOBIN 12.9 g/dl (12.0-16.0); MEAN CORPUSCULAR HEMOGLOBIN 27.7 pg (29.0-33.0); MEAN CORPUSCULAR HGB CONC 30.6 g/dl (32.0-37.0); MEAN CORPUSCULAR VOLUME 90.5 fl (82.0-101.0); MEAN PLATELET VOLUME 9.8 fl (7.4-10.4); PLATELET COUNT 187 10^3/UL (140-415); RED BLOOD COUNT 4.65 10^6/ul (4.20-5.40); RED CELL DISTRIBUTION WIDTH 20.4 % (11.5-14.5)
[2019-03-31 07:06] LABS: ADD MAN DIFF? YES; POSITIVE DIFF @See below
[2019-03-31 07:17] LABS: PARTIAL THROMBOPLASTIN TIME 49.7 Sec (23.0-35.0)
[2019-03-31 07:22] LABS: ANION GAP 5 (5-13); BLOOD UREA NITROGEN 10 mg/dl (7-20); CALCIUM 9.3 mg/dl (8.4-10.2); CARBON DIOXIDE 32 mmol/L (21-31); CHLORIDE 100 mmol/L (97-110); CREATININE 0.59 mg/dl (0.44-1.00); Estimated GFR > 60 mL/min (>60); GLUCOSE 105 mg/dl (70-220); POTASSIUM 3.5 mmol/L (3.5-5.1); SODIUM 137 mmol/L (135-144)
[2019-03-31 07:24] LABS: MAGNESIUM 1.9 mg/dl (1.7-2.5)
[2019-03-31 07:24] LABS: PHOSPHORUS 5.1 mg/dl (2.5-4.9)
[2019-03-31] MEDS: HEPARIN 1000 UNITS/ML 10 ML INJ IV (07:39)
[2019-03-31] MEDS: INSULIN ASPART [NOVOLOG] 3 ML PEN SC ×4 (07:45→21:00)
[2019-03-31] MEDS: ASPIRIN (EC) 81 MG TAB PO (08:12)
[2019-03-31] MEDS: FAMOTIDINE 20 MG TAB PO ×2 (08:12→21:06)
[2019-03-31] MEDS: METOPROLOL 25 MG TAB PO ×2 (08:13→21:06)
[2019-03-31 09:14] LABS: ANISOCYTOSIS 1+ (0-0); BAND NEUTROPHILS #M 0.4 10^3/ul (0.0-0.6); BAND NEUTROPHILS % (M) 10 % (0-4); EOSINOPHILS % (M) 2 % (0-7); ERYTHROBLAST% (NRBC) (M) 1 % (0-0); GIANT THROMBO% (M) 2 % (0-0); LYMPHOCYTES #M 1.4 10^3/ul (0.8-2.9); LYMPHOCYTES % (M) 30 % (15-51); METAMYELOCYTES %M 2 % (0-0); MICROCYTOSIS 1+ (0-0); MONOCYTE #M 0.4 10^3/ul (0.3-0.9); MONOCYTES % (M) 9 % (0-11); PLATELET ESTIMATE NORMAL; POLYCHROMASIA 1+ (0-0); PROMYELOCYTES % (M) 1 % (0-0); SEG NEUT #M 2.2 10^3/ul (1.6-7.5); SEGMENTED NEUTROPHILS (M) % 46 % (39-77); SMUDGE%M 3 % (0-0); SPHEROCYTES 1+ (0-0)
[2019-03-31 16:00] LABS: PARTIAL THROMBOPLASTIN TIME 88.5 Sec (23.0-35.0)
[2019-03-31 20:33] LABS: PARTIAL THROMBOPLASTIN TIME 83.4 Sec (23.0-35.0)
[2019-04-01] MEDS: ALBUTEROL/IPRATROPIUM (NEB) 3 ML AMP HHN ×4 (02:40→20:00)
[2019-04-01] MEDS: LEVOTHYROXINE 88 MCG TAB PO (05:58)
[2019-04-01 06:33] LABS: ABNORMAL IP MESSAGE 1; HEMATOCRIT 40.8 % (37.0-47.0); HEMOGLOBIN 12.6 g/dl (12.0-16.0); MEAN CORPUSCULAR HGB CONC 30.9 g/dl (32.0-37.0); MEAN CORPUSCULAR VOLUME 90.7 fl (82.0-101.0); PLATELET COUNT 190 10^3/UL (140-415); RED CELL DISTRIBUTION WIDTH 20.5 % (11.5-14.5)
[2019-04-01 06:58] LABS: ADD MAN DIFF? YES; POSITIVE DIFF @See below
[2019-04-01 07:04] LABS: PARTIAL THROMBOPLASTIN TIME 91.3 Sec (23.0-35.0)
[2019-04-01] MEDS: INSULIN ASPART [NOVOLOG] 3 ML PEN SC ×4 (07:55→20:31)
[2019-04-01] MEDS: FAMOTIDINE 20 MG TAB PO ×2 (08:20→20:31)
[2019-04-01] MEDS: ASPIRIN (EC) 81 MG TAB PO (08:20)
[2019-04-01] MEDS: METOPROLOL 25 MG TAB PO ×2 (08:21→20:22)
[2019-04-01 09:17] LABS: ANISOCYTOSIS 1+ (0-0); BAND NEUTROPHILS #M 0.2 10^3/ul (0.0-0.6); BAND NEUTROPHILS % (M) 4 % (0-4); EOSINOPHILS % (M) 4 % (0-7); ERYTHROBLAST% (NRBC) (M) 1 % (0-0); GIANT THROMBO% (M) 1 % (0-0); LYMPHOCYTES #M 1.2 10^3/ul (0.8-2.9); LYMPHOCYTES % (M) 25 % (15-51); MICROCYTOSIS 1+ (0-0); MONOCYTE #M 0.3 10^3/ul (0.3-0.9); MONOCYTES % (M) 6 % (0-11); MYELOCYTES #M 0.2 10^3/ul (0.0-0.0); MYELOCYTES % (M) 5 % (0-0); OVALOCYTES 1+ (0-0); PLATELET ESTIMATE NORMAL; POLYCHROMASIA 2+ (0-0); REACTIVE LYMPHOCYTES #M 0.2 10^3/ul (0.0-0.0); REACTIVE LYMPHOCYTES% (M) 5 % (0-0); SEG NEUT #M 2.6 10^3/ul (1.6-7.5); SEGMENTED NEUTROPHILS (M) % 51 % (39-77); SPHEROCYTES 1+ (0-0)
[2019-04-01] MEDS: ENOXAPARIN 100 MG/ML SYG SC ×2 (13:24→20:46)
[2019-04-02] MEDS: ALBUTEROL/IPRATROPIUM (NEB) 3 ML AMP HHN ×4 (03:12→20:09)
[2019-04-02] MEDS: LEVOTHYROXINE 88 MCG TAB PO (06:03)
[2019-04-02 06:29] LABS: ABNORMAL IP MESSAGE 1; HEMATOCRIT 41.9 % (37.0-47.0); HEMOGLOBIN 12.7 g/dl (12.0-16.0); MEAN CORPUSCULAR HEMOGLOBIN 27.9 pg (29.0-33.0); MEAN CORPUSCULAR HGB CONC 30.3 g/dl (32.0-37.0); MEAN CORPUSCULAR VOLUME 92.1 fl (82.0-101.0); MEAN PLATELET VOLUME 9.9 fl (7.4-10.4); PLATELET COUNT 198 10^3/UL (140-415); RED BLOOD COUNT 4.55 10^6/ul (4.20-5.40); RED CELL DISTRIBUTION WIDTH 20.7 % (11.5-14.5)
[2019-04-02 06:29] LABS: WHITE BLOOD COUNT 4.6 10^3/ul (4.8-10.8)
[2019-04-02 06:49] LABS: ADD MAN DIFF? YES; POSITIVE DIFF @See below
[2019-04-02 06:50] LABS: PARTIAL THROMBOPLASTIN TIME 38.9 Sec (23.0-35.0)
[2019-04-02 07:04] LABS: ANION GAP 7 (5-13); BLOOD UREA NITROGEN 14 mg/dl (7-20); CALCIUM 9.3 mg/dl (8.4-10.2); CARBON DIOXIDE 30 mmol/L (21-31); CHLORIDE 102 mmol/L (97-110); CREATININE 0.64 mg/dl (0.44-1.00); Estimated GFR > 60 mL/min (>60); GLUCOSE 99 mg/dl (70-220); POTASSIUM 4.2 mmol/L (3.5-5.1); SODIUM 139 mmol/L (135-144)
[2019-04-02] MEDS: INSULIN ASPART [NOVOLOG] 3 ML PEN SC ×4 (07:35→20:23)
[2019-04-02] MEDS: ASPIRIN (EC) 81 MG TAB PO (08:22)
[2019-04-02] MEDS: METOPROLOL 25 MG TAB PO ×2 (08:23→20:16)
[2019-04-02] MEDS: FAMOTIDINE 20 MG TAB PO ×2 (08:23→20:14)
[2019-04-02] MEDS: ENOXAPARIN 100 MG/ML SYG SC ×2 (08:33→20:22)
[2019-04-02 10:15] LABS: ANISOCYTOSIS 1+ (0-0); BAND NEUTROPHILS #M 0.5 10^3/ul (0.0-0.6); BAND NEUTROPHILS % (M) 11 % (0-4); BASOPHILS % (M) 1 % (0-2); BURR CELLS 1+ (0-0); GIANT THROMBO% (M) 1 % (0-0); LYMPHOCYTES #M 1.4 10^3/ul (0.8-2.9); LYMPHOCYTES % (M) 32 % (15-51); METAMYELOCYTES %M 1 % (0-0); MICROCYTOSIS 1+ (0-0); MONOCYTE #M 0.5 10^3/ul (0.3-0.9); MONOCYTES % (M) 12 % (0-11); MYELOCYTES #M 0.1 10^3/ul (0.0-0.0); MYELOCYTES % (M) 3 % (0-0); PLATELET ESTIMATE NORMAL; POIKILOCYTOSIS 1+ (0-0); POLYCHROMASIA 3+ (0-0); SEG NEUT #M 1.9 10^3/ul (1.6-7.5); SEGMENTED NEUTROPHILS (M) % 40 % (39-77); SMUDGE%M 4 % (0-0)
[2019-04-03] MEDS: ALBUTEROL/IPRATROPIUM (NEB) 3 ML AMP HHN ×4 (02:08→19:29)
[2019-04-03] MEDS: LEVOTHYROXINE 88 MCG TAB PO (06:12)
[2019-04-03] MEDS: INSULIN ASPART [NOVOLOG] 3 ML PEN SC ×4 (07:14→21:00)
[2019-04-03] MEDS: ASPIRIN (EC) 81 MG TAB PO (08:07)
[2019-04-03] MEDS: METOPROLOL 25 MG TAB PO ×2 (08:07→20:43)
[2019-04-03] MEDS: FAMOTIDINE 20 MG TAB PO ×2 (08:07→21:11)
[2019-04-03] MEDS: ENOXAPARIN 100 MG/ML SYG SC ×2 (08:42→21:43)
[2019-04-04] MEDS: ALBUTEROL/IPRATROPIUM (NEB) 3 ML AMP HHN ×4 (01:33→20:01)
[2019-04-04] MEDS: LEVOTHYROXINE 88 MCG TAB PO (06:51)
[2019-04-04] MEDS: INSULIN ASPART [NOVOLOG] 3 ML PEN SC ×4 (07:55→20:33)
[2019-04-04] MEDS: ENOXAPARIN 100 MG/ML SYG SC ×2 (08:22→20:48)
[2019-04-04] MEDS: FAMOTIDINE 20 MG TAB PO ×2 (08:23→20:33)
[2019-04-04] MEDS: METOPROLOL 25 MG TAB PO ×2 (08:23→20:32)
[2019-04-04] MEDS: ASPIRIN (EC) 81 MG TAB PO (08:23)
[2019-04-05] MEDS: ALBUTEROL/IPRATROPIUM (NEB) 3 ML AMP HHN ×4 (01:21→19:22)
[2019-04-05 06:30] LABS: ABNORMAL IP MESSAGE 1; ADD MAN DIFF? YES; HEMATOCRIT 43.6 % (37.0-47.0); HEMOGLOBIN 13.4 g/dl (12.0-16.0); MEAN CORPUSCULAR HEMOGLOBIN 27.9 pg (29.0-33.0); MEAN CORPUSCULAR HGB CONC 30.7 g/dl (32.0-37.0); MEAN CORPUSCULAR VOLUME 90.8 fl (82.0-101.0); MEAN PLATELET VOLUME 9.3 fl (7.4-10.4); NUCLEATED RED BLOOD CELLS% 0.3 /100WBC (0.0-0.0); PLATELET COUNT 211 10^3/UL (140-415); POSITIVE DIFF @See below; RED CELL DISTRIBUTION WIDTH 20.6 % (11.5-14.5)
[2019-04-05 06:30] LABS: WHITE BLOOD COUNT 5.7 10^3/ul (4.8-10.8)
[2019-04-05 06:50] LABS: PHOSPHORUS 5.7 mg/dl (2.5-4.9)
[2019-04-05 06:50] LABS: MAGNESIUM 2.1 mg/dl (1.7-2.5)
[2019-04-05 07:00] LABS: ANION GAP 8 (5-13); BLOOD UREA NITROGEN 13 mg/dl (7-20); CALCIUM 9.3 mg/dl (8.4-10.2); CARBON DIOXIDE 29 mmol/L (21-31); CHLORIDE 103 mmol/L (97-110); CREATININE 0.62 mg/dl (0.44-1.00); Estimated GFR > 60 mL/min (>60); GLUCOSE 109 mg/dl (70-220); POTASSIUM 4.1 mmol/L (3.5-5.1); SODIUM 140 mmol/L (135-144)
[2019-04-05] MEDS: LEVOTHYROXINE 88 MCG TAB PO (07:40)
[2019-04-05] MEDS: INSULIN ASPART [NOVOLOG] 3 ML PEN SC ×4 (07:41→21:00)
[2019-04-05 07:57] LABS: ANISOCYTOSIS 1+ (0-0); BAND NEUTROPHILS #M 0.5 10^3/ul (0.0-0.6); BAND NEUTROPHILS % (M) 9 % (0-4); BASOPHIL #M 0.1 10^3/ul (0.0-0.0); BASOPHILS % (M) 2 % (0-2); ERYTHROBLAST% (NRBC) (M) 1 % (0-0); LYMPHOCYTES #M 0.8 10^3/ul (0.8-2.9); LYMPHOCYTES % (M) 15 % (15-51); MONOCYTE #M 0.6 10^3/ul (0.3-0.9); MONOCYTES % (M) 12 % (0-11); MYELOCYTES #M 0.1 10^3/ul (0.0-0.0); MYELOCYTES % (M) 2 % (0-0); PLATELET ESTIMATE NORMAL; POIKILOCYTOSIS 1+ (0-0); POLYCHROMASIA 1+ (0-0); PROMYELOCYTES % (M) 1 % (0-0); REACTIVE LYMPHOCYTES #M 0.7 10^3/ul (0.0-0.0); REACTIVE LYMPHOCYTES% (M) 13 % (0-0); SEG NEUT #M 2.7 10^3/ul (1.6-7.5); SEGMENTED NEUTROPHILS (M) % 46 % (39-77); SMUDGE%M 37 % (0-0)
[2019-04-05] MEDS: ASPIRIN (EC) 81 MG TAB PO (08:18)
[2019-04-05] MEDS: FAMOTIDINE 20 MG TAB PO ×2 (08:19→21:36)
[2019-04-05] MEDS: METOPROLOL 25 MG TAB PO ×2 (08:19→21:54)
[2019-04-05] MEDS: ENOXAPARIN 100 MG/ML SYG SC ×2 (08:34→21:50)
[2019-04-06] MEDS: ALBUTEROL/IPRATROPIUM (NEB) 3 ML AMP HHN ×4 (01:20→20:50)
[2019-04-06] MEDS: LEVOTHYROXINE 88 MCG TAB PO (07:21)
[2019-04-06] MEDS: INSULIN ASPART [NOVOLOG] 3 ML PEN SC ×4 (07:42→20:11)
[2019-04-06] MEDS: ASPIRIN (EC) 81 MG TAB PO (08:22)
[2019-04-06] MEDS: METOPROLOL 25 MG TAB PO ×2 (08:22→20:05)
[2019-04-06] MEDS: FAMOTIDINE 20 MG TAB PO ×2 (08:24→20:05)
[2019-04-06] MEDS: ENOXAPARIN 100 MG/ML SYG SC ×2 (08:24→20:11)
[2019-04-06 23:38] LABS: ADD UMIC YES; UR ASCORBIC ACID NEGATIVE (NEGATIVE); UR BACTERIA FEW /HPF (NONE SEEN); UR BILIRUBIN (Dip) NEGATIVE (NEGATIVE); UR BLOOD (Dip) 1+ mg/dL (NEGATIVE); UR CLARITY SLIGHTLY CLOUDY (CLEAR); UR COLOR STRAW (YELLOW); UR GLUCOSE (Dip) NEGATIVE (NEGATIVE); UR KETONES (Dip) NEGATIVE (NEGATIVE); UR LEUKOCYTE ESTERASE (Dip) NEGATIVE Leu/ul (NEGATIVE); UR NITRITE (Dip) NEGATIVE (NEGATIVE); UR RBC 1 /HPF (0-5); UR SPECIFIC GRAVITY (Dip) 1.005 (1.003-1.030); UR TOTAL PROTEIN (Dip) NEGATIVE (NEGATIVE); UR UROBILINOGEN (Dip) NEGATIVE (NEGATIVE); UR WBC 4 /HPF (0-5)
[2019-04-07] MEDS: ALBUTEROL/IPRATROPIUM (NEB) 3 ML AMP HHN ×4 (01:10→19:52)
[2019-04-07] MEDS: LEVOTHYROXINE 88 MCG TAB PO ×2 (07:00→08:15)
[2019-04-07] MEDS: INSULIN ASPART [NOVOLOG] 3 ML PEN SC ×4 (08:00→20:28)
[2019-04-07] MEDS: ASPIRIN (EC) 81 MG TAB PO (09:29)
[2019-04-07] MEDS: ENOXAPARIN 100 MG/ML SYG SC ×2 (09:41→20:26)
[2019-04-07] MEDS: FAMOTIDINE 20 MG TAB PO ×2 (09:42→20:20)
[2019-04-07] MEDS: METOPROLOL 25 MG TAB PO ×2 (09:44→20:23)
[2019-04-07 09:48] LABS: ADD MAN DIFF? NO
[2019-04-07 09:52] LABS: WHITE BLOOD COUNT 6.4 10^3/ul (4.8-10.8)
[2019-04-07 09:52] LABS: BASOPHIL # 0.1 10^3/ul (0.0-0.1); BASOPHILS % 0.9 % (0.0-2.0); EOSINOPHILS # 0.1 10^3/ul (0.0-0.5); EOSINOPHILS % 0.8 % (0.0-7.0); HEMATOCRIT 44.2 % (37.0-47.0); HEMOGLOBIN 13.3 g/dl (12.0-16.0); LYMPHOCYTES # 0.9 10^3/ul (0.8-2.9); LYMPHOCYTES % 13.5 % (15.0-51.0); MEAN CORPUSCULAR HEMOGLOBIN 27.8 pg (29.0-33.0); MEAN CORPUSCULAR HGB CONC 30.1 g/dl (32.0-37.0); MEAN CORPUSCULAR VOLUME 92.3 fl (82.0-101.0); MEAN PLATELET VOLUME 9.3 fl (7.4-10.4); MONOCYTE # 0.4 10^3/ul (0.3-0.9); MONOCYTES % 5.7 % (0.0-11.0); NEUTROPHIL # 4.8 10^3/ul (1.6-7.5); NEUTROPHILS % 74.7 % (39.0-77.0); PLATELET COUNT 222 10^3/UL (140-415); RED BLOOD COUNT 4.79 10^6/ul (4.20-5.40); RED CELL DISTRIBUTION WIDTH 20.8 % (11.5-14.5)
[2019-04-07 10:19] LABS: ANION GAP 8 (5-13); BLOOD UREA NITROGEN 11 mg/dl (7-20); CALCIUM 9.3 mg/dl (8.4-10.2); CARBON DIOXIDE 27 mmol/L (21-31); CHLORIDE 103 mmol/L (97-110); CREATININE 0.65 mg/dl (0.44-1.00); Estimated GFR > 60 mL/min (>60); GLUCOSE 130 mg/dl (70-220); SODIUM 138 mmol/L (135-144)
[2019-04-07 10:23] LABS: MAGNESIUM 1.8 mg/dl (1.7-2.5)
[2019-04-07 10:23] LABS: PHOSPHORUS 4.8 mg/dl (2.5-4.9)
[2019-04-07] MEDS: CIPROFLOXACIN 500 MG TAB PO (17:25)
[2019-04-07] MEDS: NAPHAZOLINE 0.012% 15 ML OPH RIGHT EYE (20:20)
[2019-04-08] MEDS: ALBUTEROL/IPRATROPIUM (NEB) 3 ML AMP HHN ×4 (02:43→19:25)
[2019-04-08] MEDS: CIPROFLOXACIN 500 MG TAB PO ×2 (05:37→18:30)
[2019-04-08] MEDS: INSULIN ASPART [NOVOLOG] 3 ML PEN SC ×2 (07:49→11:56)
[2019-04-08] MEDS: ASPIRIN (EC) 81 MG TAB PO (08:19)
[2019-04-08] MEDS: NAPHAZOLINE 0.012% 15 ML OPH RIGHT EYE ×3 (08:19→20:15)
[2019-04-08] MEDS: FAMOTIDINE 20 MG TAB PO ×2 (08:20→20:15)
[2019-04-08] MEDS: METOPROLOL 25 MG TAB PO ×2 (08:20→20:26)
[2019-04-08] MEDS: ENOXAPARIN 100 MG/ML SYG SC ×2 (08:25→20:04)
== END 2019-04-08 21:28 | disposition home or self-care (01) | DRG 870 ==
LOC: 6WM 03-22 01:45 → PP2 03-24 21:50 → 6WM 03-27 20:37 → TEL 03-30 13:26 → PP2 04-07 00:56 → E/R 09:31 → ICU 03-28 21:13 → PP2 12:24 → ICU 12:24
PROVIDERS: Internal Medicine
PROC: 5A1955Z Respiratory Ventilation, Greater than 96 Consecutive Hours (ICD-10-PCS; principal; 2019-03-02)
PROC: 0BH17EZ Insertion of Endotracheal Airway into Trachea, Via Natural or Artificial Opening (ICD-10-PCS; 2019-03-02)
PROC: 05H433Z Insertion of Infusion Device into Left Innominate Vein, Percutaneous Approach (ICD-10-PCS; 2019-03-05)
PROC: 02HV33Z Insertion of Infusion Device into Superior Vena Cava, Percutaneous Approach (ICD-10-PCS; 2019-03-08)
DX: A41.9 Sepsis, unspecified organism (principal); J18.9 Pneumonia, unspecified organism; G93.41 Metabolic encephalopathy; J96.01 Acute respiratory failure with hypoxia; I50.33 Acute on chronic diastolic (congestive) heart failure; I26.99 Other pulmonary embolism without acute cor pulmonale; N17.9 Acute kidney failure, unspecified; Z68.42 Body mass index [BMI] 45.0-49.9, adult; E87.2 Acidosis; E87.3 Alkalosis; I82.402 Acute embolism and thrombosis of unspecified deep veins of left lower extremity; N39.0 Urinary tract infection, site not specified; R65.20 Severe sepsis without septic shock; E66.01 Morbid (severe) obesity due to excess calories; E78.5 Hyperlipidemia, unspecified; E11.9 Type 2 diabetes mellitus without complications; E03.9 Hypothyroidism, unspecified; G47.30 Sleep apnea, unspecified; I11.0 Hypertensive heart disease with heart failure; K52.9 Noninfective gastroenteritis and colitis, unspecified; Q90.9 Down syndrome, unspecified; Z71.3 Dietary counseling and surveillance; Z91.19 Patient's noncompliance with other medical treatment and regimen
CPT/HCPCS: 31500; 36415; 36569; 36600; 70450; 70490; 71045; 71250; 71275; 74177; 76937; 80048; 80053; 80061; 80202; 80307; 81001; 82550; 82553; 82803; 82962; 83036; 83605; 83735; 83880; 84100; 84132; 84443; 84484; 85025; 85610; 85730; 87040-91; 87070; 87075; 87081; 87086; 89220; 92526; 92610; 93005; 93306; 93308; 93970; 93971; 94002; 94003; 94640; 94660; 94664; 94667; 94668; 94669; 94770; 96374; 97110; 97162; 97164; 97530; 99285-25